=== PATIENT | male | born 1940 | race Caucasian/White ===

== ENCOUNTER 2018-06-02 21:39 | Emergency (ER) | payer MEDICARE, BC ==
--- NOTE | 2018-06-02 22:37 | EDM.PDOC ---
ED HPI GENERAL MEDICAL PROBLEM - General Chief Complaint: General Stated Complaint: HIGH POTASSIUM LEVEL Time Seen by Provider: 06/02/18 22:35 Source of Information: Reports: Patient History Limitations: Reports: No Limitations - History of Present Illness INITIAL COMMENTS - FREE TEXT/NARRATIVE: 78 yo male was seen in the [facility] earlier today and had a blood draw the results of which are just available this evening. He was told his K was 6.1 and that he needed to go back to the clinic early tomorrow morning to reassess this. He decided to come to the ER now instead. He has no physical sx's of this currently. His Cr was 1.5 last June. He his on a diuretic now and potassium supplementation. Also complains about a sore R 2nd toe that he bumped a couple days ago that is keeping him awake at night. Onset: Today Onset Date: 06/02/18 Duration: Hour(s):, Constant Quality: Reports: Other (no pain) Severity: Mild Improves with: Reports: None Worsens with: Reports: None Context: Reports: Other (some renal compromise, is on K supplementation) Associated Symptoms: Reports: No Other Symptoms Treatments MAINTENANCE CUSTODIAN: Reports: Other (see below) Other Treatments MAINTENANCE CUSTODIAN: none - Related Data Allergies Allergy/AdvReac Type Severity Reaction Status Date / Time No Known Allergies Allergy Verified 06/02/18 22:54 Home Meds: Home Meds Aspirin/Calcium Carbonate/Mag [Aspirin Buffered 325 mg Tab] 325 mg PO DAILY [History] Finasteride [Proscar] 5 mg PO DAILY 12/16/13 [History] Lisinopril [Prinivil] 40 mg PO DAILY 12/16/13 [History] Simvastatin [Zocor] 20 mg PO DAILY 12/16/13 [History] hydroCHLOROthiazide [Hydrochlorothiazide] 25 mg PO DAILY 12/16/13 [History] Spironolactone 25 mg PO DAILY 10/15/14 [History] Sennosides [Senna] 8.6 mg PO BID #100 tablet 11/24/14 [Rx] Past Medical History HEENT History: Reports: Cataract Cardiovascular History: Reports: High Cholesterol, Hypertension, Pacemaker Genitourinary History: Reports: BPH, Prostate Disorder Oncologic (Cancer) History: Reports: Leukemia - Infectious Disease History Infectious Disease History: Reports: Chicken Pox - Past Surgical History HEENT Surgical History: Reports: Cataract Surgery Cardiovascular Surgical History: Reports: Coronary Artery Bypass, Percutaneous Transluminal Angioplasty Respiratory Surgical History: Reports: Lung Resection, Other (See Below) Male Surgical History: Reports: TURP-Transurethral Resection of Prostate Musculoskeletal Surgical History: Reports: Hip Replacement, Knee Replacement Social & Family History - Family History Family Medical History: Noncontributory ED ROS GENERAL - Review of Systems Review Of Systems: See Below Constitutional: Reports: No Symptoms HEENT: Reports: No Symptoms Respiratory: Reports: No Symptoms Cardiovascular: Reports: No Symptoms GI/Abdominal: Reports: No Symptoms : Reports: No Symptoms Musculoskeletal: Reports: No Symptoms Skin: Reports: No Symptoms Neurological: Reports: No Symptoms Psychiatric: Reports: No Symptoms ED EXAM, GENERAL - Physical Exam Exam: See Below Exam Limited By: No Limitations General Appearance: Alert, WD/WN, No Apparent Distress, Thin Eye Exam: Bilateral Eye: Normal Inspection Ears: Normal External Exam, Normal Canal, Hearing Grossly Normal, Normal TMs Ear Exam: Bilateral Ear: Auricle Normal, Canal Normal, TM normal Nose: Normal Inspection, Normal Mucosa, No Blood Throat/Mouth: Normal Inspection, Normal Oropharynx, Normal Voice, No Airway Compromise. No: Normal Teeth Head: Atraumatic, Normocephalic Neck: Normal Inspection, Supple Respiratory/Chest: No Respiratory Distress, Lungs Clear, Normal Breath Sounds, No Accessory Muscle Use Cardiovascular: Regular Rate, Rhythm, No Edema GI/Abdominal: Normal Bowel Sounds, Soft, Non-Tender, No Distention Back Exam: Normal Inspection. No: CVA Tenderness (R), CVA Tenderness (L) Extremities: Normal Inspection, Normal Range of Motion, Non-Tender, No Pedal Edema Neurological: Alert, Oriented, CN II-XII Intact, Normal Cognition, No Motor/ Sensory Deficits Psychiatric: Normal Affect, Normal Mood Skin Exam: Warm, Dry, Intact, Normal Color, No Rash EKG INTERPRETATION EKG Date: 06/02/18 Time: 23:02 Rhythm: Other (paced rhythm) Rate (Beats/Min): 73 [place]: Normal P-Wave: Present QRS: Wide ST-T: Other (unchanged from prior EKG) QT: Normal [place]/PQ Interval: prolonged [place] interval Comparison: No Change Course - Vital Signs Last Recorded V/S: Last Vital Signs Temp 35.4 C 08/14/18 22:23 Pulse 76 06/02/18 22:23 Resp 16 06/02/18 22:23 BP 99/43 L 06/02/18 22:23 Pulse Ox 99 06/02/18 22:23 - Orders/Labs/Meds Orders: Active Orders 24 hr Category Date Time Status EKG Documentation Completion [RC] ASDIRECTED Care 06/02/18 22:57 Ordered EKG 12 Lead [EK] Routine Ther 06/02/18 22:57 Ordered Labs: Laboratory Tests 06/02/18 Range/Units 22:40 Potassium 5.8 H (3.6-5.2) mmol/L Meds: Medications Discontinued Medications Generic Name Dose Route Start Last Admin Trade Name Freq PRN Reason Stop Dose Admin Sodium Polystyrene Sulfonate 30 gm 06/02/18 22:57 Kayexalate PO 06/02/18 22:58 ONETIME ONE Departure - Departure Time of Disposition: 23:15 Disposition: Home, Self-Care 01 Condition: Fair Clinical Impression: Hyperkalemia Toe contusion Qualifiers: Encounter type: initial encounter Toe: lesser toe Damage to nail status: without damage Laterality: right Qualified Code(s): S90.121A - Contusion of right lesser toe(s) without damage to nail, initial encounter - Discharge Information *PRESCRIPTION DRUG MONITORING PROGRAM REVIEWED*: No *COPY OF PRESCRIPTION DRUG MONITORING REPORT IN PATIENT LUIS E: No Instructions: Hyperkalemia, [id number] Referrals: Leo Archer MD [Primary Care Provider] - Forms: ED Department Discharge Additional Instructions: Hold your potassium supplementation. Recheck in the clinic again for another potassium check before the weekend. Use acetaminophen OR [place] for pain relief as needed. Watch your toe closely for signs of infection. - My Orders Last 24 Hours: My Active Orders 06/02/18 22:57 EKG Documentation Completion [RC] ASDIRECTED EKG 12 Lead [EK] Routine - Assessment/Plan Last 24 Hours: My Active Orders 06/02/18 22:57 EKG Documentation Completion [RC] ASDIRECTED EKG 12 Lead [EK] Routine
[2018-06-02] MEDS ORDERED: Sodium Polystyrene Sulfonate 15 GM/60 ML Susp 60 ML Bot PO ONE (22:57)
[2018-06-02 23:29] VITALS: BP 108/54
== END 2018-06-02 23:28 | disposition home or self-care (01) ==
LOC: JP.ED 21:39
DX: E87.5 Hyperkalemia (principal); S90.121A Contusion of right lesser toe(s) without damage to nail, initial encounter; I10 Essential (primary) hypertension; Z79.82 Long term (current) use of aspirin; Z79.899 Other long term (current) drug therapy; X58.XXXA Exposure to other specified factors, initial encounter; C34.12 Malignant neoplasm of upper lobe, left bronchus or lung; Z90.2 Acquired absence of lung [part of]; R91.8 Other nonspecific abnormal finding of lung field
CPT/HCPCS: 36415; 71250; 84132; 93005; 99283; 99285; A9270

== ENCOUNTER 2018-06-06 13:42 | Observation (INO) | payer BC, MEDICARE ==
[2018-06-06] MEDS ORDERED: Sodium Polystyrene Sulfonate 15 GM/60 ML Susp 60 ML Bot PO ONE (14:18)
[2018-06-06] MEDS ORDERED: Sodium Chloride 0.9% 1,000 ML IV ONE (14:20)
--- NOTE | 2018-06-06 14:21 | EDM.PDOC ---
ED HPI GENERAL MEDICAL PROBLEM - General Chief Complaint: General Stated Complaint: HIGH POTASSIUM LEVELS Time Seen by Provider: 06/06/18 14:31 Source of Information: Reports: Patient, Old Records, Provider, RN History Limitations: Reports: No Limitations - History of Present Illness INITIAL COMMENTS - FREE TEXT/NARRATIVE: 78 yo male was sent to the ER today for hyperkalemia and elevated creatinine. Recently stopped his potassium supplementation for this and his potassium level estela. Is urinating normal amts. No recent vomiting or diarrhea. Appetite normal. Lives with his . Is on spironolactone 25 mg qd and lisinopril 40 mg qd. Onset: Gradual Onset Date: 06/02/18 (first noted, likely onset before this. ) Duration: Day(s): (Or ? weeks.) Location: Reports: Generalized Quality: Reports: Other (no pain) Severity: Moderate Improves with: Reports: None Worsens with: Reports: Other (? time) Context: Reports: Other (Dx with hyperkalemia early in week, now also renal failure) Associated Symptoms: Reports: No Other Symptoms Treatments SPUDDER: Reports: Other (see below) (one dose of Kayexalate early in the week, potassium withheld) - Related Data Allergies Allergy/AdvReac Type Severity Reaction Status Date / Time No Known Allergies Allergy Verified 06/02/18 22:54 Home Meds: Home Meds Aspirin/Calcium Carbonate/Mag [Aspirin Buffered 325 mg Tab] 325 mg PO DAILY [History] Finasteride [Proscar] 5 mg PO DAILY 12/16/13 [History] Lisinopril [Prinivil] 40 mg PO DAILY 12/16/13 [History] Simvastatin [Zocor] 20 mg PO DAILY 12/16/13 [History] hydroCHLOROthiazide [Hydrochlorothiazide] 25 mg PO DAILY 12/16/13 [History] Spironolactone 25 mg PO DAILY 10/15/14 [History] Sennosides [Senna] 8.6 mg PO BID #100 tablet 11/24/14 [Rx] Past Medical History HEENT History: Reports: Cataract Cardiovascular History: Reports: High Cholesterol, Hypertension, Pacemaker Genitourinary History: Reports: BPH, Prostate Disorder Oncologic (Cancer) History: Reports: Leukemia - Infectious Disease History Infectious Disease History: Reports: Chicken Pox, Measles, Mumps - Past Surgical History HEENT Surgical History: Reports: Cataract Surgery Cardiovascular Surgical History: Reports: Coronary Artery Bypass, Percutaneous Transluminal Angioplasty Respiratory Surgical History: Reports: Lung Resection, Other (See Below) Male Surgical History: Reports: TURP-Transurethral Resection of Prostate Musculoskeletal Surgical History: Reports: Hip Replacement, Knee Replacement Social & Family History - Family History Family Medical History: Noncontributory - Tobacco Use Smoking Status *Q: Never Smoker - Caffeine Use Caffeine Use: Reports: Coffee - Recreational Drug Use Recreational Drug Use: No ED ROS GENERAL - Review of Systems Review Of Systems: See Below Constitutional: Reports: No Symptoms HEENT: Reports: No Symptoms Respiratory: Reports: No Symptoms Cardiovascular: Reports: No Symptoms GI/Abdominal: Reports: No Symptoms : Reports: No Symptoms (making normal urine volumes.) Musculoskeletal: Reports: No Symptoms Skin: Reports: No Symptoms Neurological: Reports: No Symptoms Psychiatric: Reports: No Symptoms ED EXAM, GENERAL - Physical Exam Exam: See Below Exam Limited By: No Limitations General Appearance: Alert, WD/WN, No Apparent Distress, Thin Eye Exam: Bilateral Eye: Normal Inspection Ears: Normal External Exam, Normal Canal, Hearing Grossly Normal Nose: Normal Inspection, Normal Mucosa, No Blood Throat/Mouth: Normal Inspection, Normal Lips, Normal Oropharynx, Normal Voice, No Airway Compromise Head: Atraumatic, Normocephalic Neck: Normal Inspection, Supple Respiratory/Chest: No Respiratory Distress, Lungs Clear, Normal Breath Sounds, No Accessory Muscle Use Cardiovascular: Regular Rate, Rhythm GI/Abdominal: Normal Bowel Sounds, Soft, Non-Tender, No Distention Back Exam: Normal Inspection. No: CVA Tenderness (R), CVA Tenderness (L) Extremities: Normal Inspection, Normal Range of Motion, Non-Tender, No Pedal Edema Neurological: Alert, Oriented, CN II-XII Intact, Normal Cognition, No Motor/ Sensory Deficits Psychiatric: Normal Affect, Normal Mood Skin Exam: Warm, Dry, Intact, Normal Color, No Rash EKG INTERPRETATION EKG Date: 06/06/18 Time: 14:25 Rhythm: NSR Rate (Beats/Min): 69 [place]: Normal P-Wave: Present QRS: Wide ST-T: Normal QT: Prolonged [place]/PQ Interval: prolonged [place] interval. Comparison: No Change EKG Interpretation Comments: T waves peaked, not more than on 06/02/2018 Course - Vital Signs Text/Narrative:: Dr. Mora called @ [id number] Last Recorded V/S: Last Vital Signs Temp 34.6 C L 06/06/18 14:10 Pulse 76 06/06/18 14:10 Resp 16 06/06/18 14:10 BP 120/58 L 06/06/18 15:07 Pulse Ox 97 06/06/18 14:10 - Orders/Labs/Meds Orders: Active Orders 24 hr Category Date Time Status Cardiac Monitoring [RC] .As Directed Care 06/06/18 14:21 Active EKG Documentation Completion [RC] ASDIRECTED Care 06/06/18 14:21 Active POTASSIUM,URINE RANDOM [URCHEM] Stat Lab 06/06/18 14:48 Ordered Calcium Gluconate 1 gm Med 06/06/18 15:15 Active Sodium Chloride 0.9% [Normal Saline] 100 ml IV ONETIME Sodium Chloride 0.9% [Normal Saline] 1,000 ml Med 06/06/18 14:20 Active IV .BOLUS EKG 12 Lead [EK] Routine Ther 06/06/18 14:21 Ordered Medication Orders Sodium Chloride (Normal Saline) 1,000 mls @ 1,000 mls/hr IV .BOLUS ONE Stop: 06/06/18 15:19 Last Admin: 06/06/18 15:07 Dose: 1,000 mls/hr Calcium Gluconate 1 gm/ Sodium (Chloride) 110 mls @ 100 mls/hr IV ONETIME ONE Stop: 06/06/18 16:20 Meds: Medications Generic Name Dose Route Start Last Admin Trade Name Freq PRN Reason Stop Dose Admin Sodium Chloride 1,000 mls @ 1,000 mls/hr 06/06/18 14:20 06/06/18 15:07 Normal Saline IV 06/06/18 15:19 1,000 mls/hr .BOLUS ONE Administration Calcium Gluconate 1 gm/ Sodium 110 mls @ 100 mls/hr 06/06/18 15:15 Chloride IV 06/06/18 16:20 ONETIME ONE Discontinued Medications Generic Name Dose Route Start Last Admin Trade Name Freq PRN Reason Stop Dose Admin Furosemide 40 mg 06/06/18 14:51 06/06/18 15:07 Lasix IVPUSH 06/06/18 14:52 40 mg ONETIME ONE Administration Sodium Polystyrene Sulfonate 45 gm 06/06/18 14:18 06/06/18 14:48 Kayexalate PO 06/06/18 14:19 45 gm NOW ONE Administration Departure - Departure Time of Disposition: 15:35 Disposition: Refer to Observation Condition: Fair Clinical Impression: Hyperkalemia, Elevated serum creatinine, Elevated BUN - Discharge Information *PRESCRIPTION DRUG MONITORING PROGRAM REVIEWED*: Not Applicable *COPY OF PRESCRIPTION DRUG MONITORING REPORT IN PATIENT LUIS E: Not Applicable Referrals: Leo Archer MD [Primary Care Provider] - Forms: ED Department Discharge - My Orders Last 24 Hours: My Active Orders 06/06/18 14:20 Sodium Chloride 0.9% [Normal Saline] 1,000 ml IV .BOLUS 06/06/18 14:21 Cardiac Monitoring [RC] .As Directed EKG Documentation Completion [RC] ASDIRECTED EKG 12 Lead [EK] Routine 06/06/18 14:48 POTASSIUM,URINE RANDOM [URCHEM] Stat 06/06/18 15:15 Calcium Gluconate 1 gm Sodium Chloride 0.9% [Normal Saline] 100 ml IV ONETIME - Assessment/Plan Last 24 Hours: My Active Orders 06/06/18 14:20 Sodium Chloride 0.9% [Normal Saline] 1,000 ml IV .BOLUS 06/06/18 14:21 Cardiac Monitoring [RC] .As Directed EKG Documentation Completion [RC] ASDIRECTED EKG 12 Lead [EK] Routine 06/06/18 14:48 POTASSIUM,URINE RANDOM [URCHEM] Stat 06/06/18 15:15 Calcium Gluconate 1 gm Sodium Chloride 0.9% [Normal Saline] 100 ml IV ONETIME
[2018-06-06] MEDS ORDERED: Calcium Gluconate 1 GM in Sodium Chloride 0.9% 100 ML IV ONE ×2 (14:45→15:15)
[2018-06-06] MEDS ORDERED: Furosemide 40 MG/4 ML VIAL IVPUSH ONE (14:51)
--- NOTE | 2018-06-06 16:05 | PCM.HP ---
H&P History of Present Illness - General Date of Service: 06/06/18 Admit Problem/Dx: Admission Diagnosis/Problem Admission Diagnosis/Problem Hyperkalemia Source of Information: Patient, Family, Provider History Limitations: Reports: No Limitations - History of Present Illness Initial Comments - Free Text/Narative: Jean Paul presented to the ER at the recommendation of the clinic where he presented for a potassium recheck. Earlier this week he had his six-month labs checked at the oncology clinic and a potassium of 6.1 and a creatinine of about 2.5 for both noted. He was sent to the emergency room for treatment. He was treated and released from the emergency room that evening. He came to the clinic today for a planned recheck and his potassium was up to 6.3 and his creatinine was up to 3.4. He was sent to the emergency room for treatment and evaluation. He reports that he feels fine and does not endorse headache, shortness of breath, chest pain, abdominal pain or nausea. Nothing has been out of the ordinary other than possibly some mild fatigue. He has not had any fevers or sweats. Appetite has been normal. In the emergency room an EKG was performed which showed some mildly peaked T waves. He received calcium gluconate, Kayexalate, IV fluids and furosemide. He will be admitted for observation. - Related Data Allergies/Adverse Reactions: Allergies Allergy/AdvReac Type Severity Reaction Status Date / Time No Known Allergies Allergy Verified 06/02/18 22:54 Home Medications: Home Meds Aspirin/Calcium Carbonate/Mag [Aspirin Buffered 325 mg Tab] 325 mg PO DAILY [History] Finasteride [Proscar] 5 mg PO DAILY 12/16/13 [History] Lisinopril [Prinivil] 40 mg PO DAILY 12/16/13 [History] Simvastatin [Zocor] 20 mg PO DAILY 12/16/13 [History] hydroCHLOROthiazide [Hydrochlorothiazide] 25 mg PO DAILY 12/16/13 [History] Spironolactone 25 mg PO DAILY 10/15/14 [History] Sennosides [Senna] 8.6 mg PO BID #100 tablet 11/24/14 [Rx] Past Medical History HEENT History: Reports: Cataract Cardiovascular History: Reports: High Cholesterol, Hypertension, Pacemaker Genitourinary History: Reports: BPH, Prostate Disorder Oncologic (Cancer) History: Reports: Leukemia - Infectious Disease History Infectious Disease History: Reports: Chicken Pox, Measles, Mumps - Past Surgical History HEENT Surgical History: Reports: Cataract Surgery Cardiovascular Surgical History: Reports: Coronary Artery Bypass, Percutaneous Transluminal Angioplasty Respiratory Surgical History: Reports: Lung Resection, Other (See Below) Male Surgical History: Reports: TURP-Transurethral Resection of Prostate Musculoskeletal Surgical History: Reports: Hip Replacement, Knee Replacement Social & Family History - Family History Family Medical History: Noncontributory - Tobacco Use Smoking Status *Q: Never Smoker - Caffeine Use Caffeine Use: Reports: Coffee - Alcohol Use Alcohol Use History: No - Recreational Drug Use Recreational Drug Use: No H&P Review of Systems - Review of Systems: Review Of Systems: See Below Free Text/Narrative: A complete 12 point review of systems was obtained. Pertinent positives and negatives are noted in the history of present illness. All other systems were reviewed and were negative except as noted. Exam - Exam Exam: See Below - Vital Signs Vital Signs: Last Vital Signs Temp 34.6 C L 06/06/18 14:10 Pulse 77 06/06/18 15:37 Resp 16 06/06/18 14:10 BP 122/62 06/06/18 15:37 Pulse Ox 97 06/06/18 14:10 Weight: 55.2 kg - Exam Quality Assessment: No: Supplemental Oxygen General: Alert, Oriented, Cooperative. No: Mild Distress HEENT: Conjunctiva Clear, Mucosa Moist & [place]. No: Scleral Icterus Neck: Supple, Trachea Midline. No: Lymphadenopathy Lungs: Clear to Auscultation, Normal Respiratory Effort Cardiovascular: Regular Rate, Regular Rhythm. No: Systolic Murmur GI/Abdominal Exam: Normal Bowel Sounds, Soft, Non-Tender, No Distention Back Exam: Normal Inspection, Full Range of Motion Extremities: No Pedal Edema. No: Increased Warmth Skin: Warm, Dry Neuro Extensive - Mental Status: Alert, Oriented x3, Nl Response to Commands Neuro Extensive - Motor, Sensory, Reflexes: CN II-XII Intact. No: Dysarthria, Abnormal Motor, Tremor Psychiatric: Alert, Normal Affect - Patient Data Lab Results Last 24 hrs: Laboratory Results - last 24 hr 06/06/18 Range/Units 15:23 Ur Random Potassium 44.7 (12-62) mmol/L EKG INTERPRETATION EKG Date: 06/06/18 Rhythm: NSR Rate (Beats/Min): 69 [place]: LAD-Left Ono Deviation (LAFB) P-Wave: Present QRS: Wide ST-T: Normal Comparison: No Change EKG Interpretation Comments: Inverted T wave in II, III and aVF image personally reviewed *Q Meaningful Use (ADM) - VTE Risk Assess *Q Each Risk Factor Represents 1 Point: None Total Score 1 Point Risk Factors: 0 Each Risk Factor Represents 2 Points: Malignancy (present or previous) Total Score 2 Point Risk Factors: 2 Each Risk Factor Represents 3 Points: Age 75 Years or Greater Total Score 3 Point Risk Factors: 3 Each Risk Factor Represents 5 Points: None Total Score 5 Point Risk Factors: 0 Venous Thromboembolism Risk Factor Score *Q: 5 - Problem List (1) Hyperkalemia SNOMED Code(s): 63233546 ICD Code: E87.5 - HYPERKALEMIA Status: Acute Current Visit: Yes (2) Acute kidney injury superimposed on chronic kidney disease SNOMED Code(s): 73738548 ICD Code: N17.9 - ACUTE KIDNEY FAILURE, UNSPECIFIED; N18.9 - CHRONIC KIDNEY DISEASE, UNSPECIFIED Status: Acute Current Visit: Yes (3) Chronic lymphocytic leukemia SNOMED Code(s): 00413325 ICD Code: C91.10 - CHRONIC LYMPHOCYTIC LEUK OF B-CELL TYPE NOT ACHIEVE REMIS Status: Chronic Current Visit: No Problem List Initiated/Reviewed/Updated: Yes Orders Last 24hrs: Active Orders 24 hr Category Date Time Status Patient Status Manage Transfer [TRANSFER] Routine ADT 06/06/18 15:55 Ordered Cardiac Monitoring [RC] .As Directed Care 06/06/18 14:21 Active EKG Documentation Completion [RC] ASDIRECTED Care 06/06/18 14:21 Active POTASSIUM,URINE RANDOM [URCHEM] Stat Lab 06/06/18 15:23 Ordered Calcium Gluconate 1 gm Med 06/06/18 15:15 Active Sodium Chloride 0.9% [Normal Saline] 100 ml IV ONETIME Resuscitation Status Routine Resus Stat 06/06/18 15:56 Ordered EKG 12 Lead [EK] Routine Ther 06/06/18 14:21 Ordered Medication Orders Calcium Gluconate 1 gm/ Sodium (Chloride) 110 mls @ 100 mls/hr IV ONETIME ONE Stop: 06/06/18 16:20 Last Admin: 06/06/18 15:16 Dose: 100 mls/hr Assessment/Plan Comment:: ASSESSMENT AND PLAN - Acute hyperkalemia - complicated by renal failure as discussed below. I suspect this is related to medications as he is on both an SUHA inhibitor and spironolactone. He is asymptomatic at this time. Mildly peaked T waves noted on EKG and he has received calcium gluconate. He has also received Kayexalate, furosemide and IV fluids in the emergency room. -Repeat level this evening -Continue IV fluids -Repeat level in the morning Acute on chronic kidney injury - baseline kidney function is stage III and this was present 6 months ago. Creatinine is now up to 3.4. I suspect this is related to his antihypertensive medications. I'm planning to hold all 3 of his antihypertensive medications and provide gentle fluids. I would expect that this should help improve the creatinine as well as the potassium as discussed above. If he has difficulties with hypertension we may need to consider an antihypertensive such as a calcium channel yves or beta yves that will not affect kidney function. -Hold lisinopril, hydrochlorothiazide and spironolactone -Fluids as above -Repeat levels in the morning CLL - No B symptoms at this time. White blood cell count has been stable. Oncology is still in the watchful waiting phase. -Outpatient follow-up Maintenance issues - - DVT prophylaxis - mechanical - GI prophylaxis - not indicated - Nutrition - regular diet - Marcelino catheter - not indicated CODE STATUS - full code Admission justification - patient will be referred observation status for repeat laboratory testing and hydration Disposition - I would anticipate discharge to home tomorrow if levels improve Primary care physician - Dr. Gianni Mora M.D.
[2018-06-06] MEDS ORDERED: Polyethylene Glycol 3350 Powder 17 GM Packet PO PRN (16:41)
[2018-06-06] MEDS ORDERED: Acetaminophen 325 MG Tab PO PRN (16:41)
[2018-06-06] MEDS ORDERED: Ondansetron 4 MG Tab.DIS PO PRN (16:41)
[2018-06-06] MEDS: Sodium Chloride 0.9% 1,000 ML IV SCH (17:12)
[2018-06-07] MEDS: Sodium Chloride 0.9% 1,000 ML IV SCH (00:39)
[2018-06-07 07:23] VITALS: BP 105/48
[2018-06-07] MEDS ORDERED: Finasteride 5 MG Tab PO SCH (09:00)
[2018-06-07] MEDS ORDERED: Non-Formulary Medication 1 Each (Finasteride [Proscar] 5 MG) PO SCH (09:00)
[2018-06-07] MEDS ORDERED: Non-Formulary Medication 1 Each (Simvastatin [Zocor] 20 MG) PO SCH (09:00)
--- NOTE | 2018-06-07 09:58 | PCM.DCSUM1 ---
Discharge Summary - Hospital Course Brief History: 78-year-old male with previous lung cancer, current CLL in the watchful waiting stage and recent difficulties with hyperkalemia and acute on chronic kidney injury who presented from the clinic with worsening hyperkalemia and kidney function. Diagnosis: Stroke: No - Discharge Data Discharge Date: 06/07/18 Discharge Disposition: Home, Self-Care 01 Condition: Good - Discharge Diagnosis/Problem(s) (1) Hyperkalemia SNOMED Code(s): 44138322 ICD Code: E87.5 - HYPERKALEMIA Status: Acute (2) Acute kidney injury superimposed on chronic kidney disease SNOMED Code(s): 66754727 ICD Code: N17.9 - ACUTE KIDNEY FAILURE, UNSPECIFIED; N18.9 - CHRONIC KIDNEY DISEASE, UNSPECIFIED Status: Acute (3) Chronic lymphocytic leukemia SNOMED Code(s): 40866673 ICD Code: C91.10 - CHRONIC LYMPHOCYTIC LEUK OF B-CELL TYPE NOT ACHIEVE REMIS Status: Chronic - Patient Summary/Data Hospital Course: Kvng was sent from the clinic after his potassium level was noted to be 6.1 and his creatinine had risen to 3.4. In the emergency room he received Kayexalate, IV fluids, furosemide as well as calcium gluconate. He was admitted to the hospital for follow-up laboratory studies as well as cardiac monitoring. Repeat potassium testing several hours after admission revealed that the level had normalized. Repeat testing again in the morning revealed a potassium level that had remained normal. Kidney function had improved significantly with his creatinine down to 2.4. There were no abnormalities with cardiac monitoring overnight. He has continued to feel well. He is interested in outpatient management at this time. I think he is safe for outpatient management given the significant improvement in both his potassium and the kidney function. He has follow-up in 2 days time and has repeat blood testing planned prior to his follow-up appointment. We have elected to discontinue lisinopril, hydrochlorothiazide as well as his spironolactone. His blood pressures have been normal or on the low side of normal throughout the hospital stay. He will be checking his blood pressures 2-3 times daily and with any symptoms. - Patient Instructions Diet: Regular Diet as Tolerated Activity: As Tolerated Driving: May Drive Today Showering/Bathing: May Shower Notify Provider of: Fever, Increased Pain, Nausea and/or Vomiting Other/Special Instructions: 1. You were in the hospital for management of hyperkalemia and acute kidney injury caused by medication side effects. Your kidney function and potassium have both improved with treatment provided in the emergency room and hospital overnight. I recommend that you stop taking your lisinopril, your hydrochlorothiazide as well as your spironolactone. Please check your blood pressure 2-3 times per day until your follow-up on Friday. Please contact your provider if you have systolic blood pressures greater than 180. 2. Seek medical attention if you develop fever greater than 101, you have severe dizziness or lightheadedness or if you develop chest pain. - Discharge Plan *PRESCRIPTION DRUG MONITORING PROGRAM REVIEWED*: Not Applicable *COPY OF PRESCRIPTION DRUG MONITORING REPORT IN PATIENT LUIS E: Not Applicable Home Medications: Home Meds Aspirin/Calcium Carbonate/Mag [Aspirin Buffered 325 mg Tab] 325 mg PO DAILY [History] Finasteride [Proscar] 5 mg PO DAILY 12/16/13 [History] Simvastatin [Zocor] 20 mg PO DAILY 12/16/13 [History] Sennosides [Senna] 8.6 mg PO BID #100 tablet 11/24/14 [Rx] Patient Handouts: Hyperkalemia Referrals: Leo Archer MD [Primary Care Provider] - - Discharge Summary/Plan Comment DC Time >30 min.: No - Patient Data Vitals - Most Recent: Last Vital Signs Temp 36.0 C 06/07/18 07:16 Pulse 69 06/07/18 07:16 Resp 16 06/07/18 07:16 BP 105/48 L 06/07/18 07:16 Pulse Ox 98 06/07/18 07:16 Weight - Most Recent: 55.2 kg I&O - Last 24 hours: Intake & Output 06/06/18 06/07/18 06/07/18 22:59 06:59 14:59 Intake Total 1240 952 240 Output Total 575 Balance 665 952 240 Lab Results - Last 24 hrs: Laboratory Results - last 24 hr 06/06/18 06/06/18 06/07/18 Range/Units 15:23 20:55 04:44 WBC 49.7 H* (4.5-11.0) K/uL RBC 3.05 L (4.30-5.90) M/uL Hgb 8.6 L (12.0-15.0) g/dL Hct 27.8 L (40.0-54.0) % MCV 91 (80-98) fL MCH 28 (27-31) pg MCHC 31 L (32-36) % Plt Count 249 (150-400) K/uL Neut % (Auto) (36-66) % Lymph % (Auto) (24-44) % [place] % (Auto) (2-6) % Eos % (Auto) (2-4) % Baso % (Auto) (0-1) % Sodium (140-148) mmol/L Potassium 5.2 (3.6-5.2) mmol/L Chloride (100-108) mmol/L Carbon Dioxide (21-32) mmol/L Anion Gap (5.0-14.0) mmol/L BUN (7-18) mg/dL Creatinine (0.8-1.3) mg/dL Est Cr Clr Drug Dosing mL/min Estimated GFR (MDRD) (>60) Glucose (74-106) mg/dL Calcium (8.5-10.1) mg/dL Ur Random Potassium 44.7 (12-62) mmol/L 06/07/18 06/07/18 Range/Units 04:44 06:25 WBC 49.2 H* (4.5-11.0) K/uL RBC 3.02 L (4.30-5.90) M/uL Hgb 8.6 L (12.0-15.0) g/dL Hct 27.5 L (40.0-54.0) % MCV 91 (80-98) fL MCH 29 (27-31) pg MCHC 31 L (32-36) % Plt Count 260 (150-400) K/uL Neut % (Auto) 9 L (36-66) % Lymph % (Auto) 87 H (24-44) % [place] % (Auto) 3 (2-6) % Eos % (Auto) 0 L (2-4) % Baso % (Auto) 0 (0-1) % Sodium 141 (140-148) mmol/L Potassium 4.9 (3.6-5.2) mmol/L Chloride 109 H (100-108) mmol/L Carbon Dioxide 22 (21-32) mmol/L Anion Gap 14.9 H (5.0-14.0) mmol/L BUN 70 H (7-18) mg/dL Creatinine 2.5 H (0.8-1.3) mg/dL Est Cr Clr Drug Dosing 19.01 mL/min Estimated GFR (MDRD) 25 L (>60) Glucose 99 (74-106) mg/dL Calcium 8.2 L (8.5-10.1) mg/dL Ur Random Potassium (12-62) mmol/L Med Orders - Current: Current Medications Acetaminophen (Tylenol) 650 mg PO Q4H PRN PRN Reason: Pain (Mild 1-3)/fever Finasteride (Proscar) 5 mg PO DAILY [facility] Last Admin: 06/07/18 09:25 Dose: 5 mg Sodium Chloride (Normal Saline) 1,000 mls @ 100 mls/hr IV ASDIRECTED [facility] Last Admin: 06/07/18 00:39 Dose: 100 mls/hr Ondansetron HCl (Zofran Odt) 4 mg PO Q6H PRN PRN Reason: Nausea able to take PO Simvastatin 40mg ( (Ptom)) 0 each PO BEDTIME [facility] Polyethylene Glycol (Miralax) 17 gm PO DAILY PRN PRN Reason: Constipation Discontinued Medications Furosemide (Lasix) 40 mg IVPUSH ONETIME ONE Stop: 06/06/18 14:52 Last Admin: 06/06/18 15:07 Dose: 40 mg Sodium Chloride (Normal Saline) 1,000 mls @ 1,000 mls/hr IV .BOLUS ONE Stop: 06/06/18 15:19 Last Admin: 06/06/18 15:07 Dose: 1,000 mls/hr Calcium Gluconate 1 gm/ Sodium (Chloride) 110 mls @ 100 mls/hr IV ONETIME ONE Stop: 06/06/18 16:20 Last Admin: 06/06/18 15:16 Dose: 100 mls/hr Sodium Polystyrene Sulfonate (Kayexalate) 45 gm PO NOW ONE Stop: 06/06/18 14:19 Last Admin: 06/06/18 14:48 Dose: 45 gm - Exam Quality Assessment: Denies: Supplemental Oxygen General: Reports: Alert, Oriented, Cooperative, No Acute Distress Lungs: Reports: Normal Respiratory Effort GI/Abdominal Exam: Soft, No Distention Extremities: No Pedal Edema Psy/Mental Status: Reports: Alert, Normal Affect
[2018-06-07] MEDS ORDERED: SIMVASTATIN 40 MG PO SCH (21:00)
== END 2018-06-07 10:25 | disposition home or self-care (01) ==
LOC: JP.ED 13:42 → JP.MS 15:55
PROVIDERS: ADMIT Internal Medicine; ATTEND Internal Medicine
DX: E87.5 Hyperkalemia (principal); I12.9 Hypertensive chronic kidney disease with stage 1 through stage 4 chronic kidney disease, or unspecified chronic kidney disease; N18.9 Chronic kidney disease, unspecified; N17.9 Acute kidney failure, unspecified; C91.10 Chronic lymphocytic leukemia of B-cell type not having achieved remission; Z79.82 Long term (current) use of aspirin; Z79.899 Other long term (current) drug therapy
CPT/HCPCS: 36415; 80048; 84132; 84133; 85025; 85027; 93005; 96365; 96375; 99285; A9270; J0610; J1940; J7030; 96361; G0378

== ENCOUNTER 2020-06-05 07:41 | Inpatient (IN) | payer BC, MEDICARE ==
[~2020-06-05 07:41] MED LIST: Albuterol 0.083% 2.5 MG/3 ML Neb Soln NEB ONE; Bupivacaine 0.5%/EPINEPHrine 1:200,000 50 ML MDV ONE; Lidocaine 2% Viscous Solution 15 ML Cup ONE; Lidocaine 4% Top Soln 50 ML Bottle ONE
[2020-06-05] MEDS ORDERED: Metoprolol Succinate 25 MG Tab.ER PO ONE (08:30)
[2020-06-05] MEDS ORDERED: ePHEDrine 50 MG/ML SDV ONE ×2 (08:33→12:53)
[2020-06-05] MEDS ORDERED: Sodium Chloride 0.9% 0 ML ONE (08:33)
[2020-06-05] MEDS ORDERED: Neostigmine Methylsulfate 1 MG/ML 5 ML Syringe ONE (08:35)
[2020-06-05] MEDS ORDERED: Succinylcholine 200 MG/10 ML MDV ONE (08:35)
[2020-06-05] MEDS ORDERED: Rocuronium 50 MG/5 ML Vial ONE (08:35)
[2020-06-05] MEDS ORDERED: fentaNYL 250 MCG/5 ML SDV ONE (08:35)
[2020-06-05] MEDS ORDERED: Glycopyrrolate 0.2 MG/ML 5 ML MDV ONE (08:35)
[2020-06-05] MEDS ORDERED: Dexamethasone 4 MG/ML SDV ONE (08:35)
[2020-06-05] MEDS ORDERED: Ondansetron 4 MG/2 ML SDV ONE (08:35)
[2020-06-05] MEDS ORDERED: Propofol 200 MG/20 ML SDV ONE (08:35)
[2020-06-05] MEDS ORDERED: Sodium Chloride 0.9% 10 ML ONE (08:40)
[2020-06-05] MEDS ORDERED: Heparin Sodium 5,000 Units/ML Vial ONE (08:47)
[2020-06-05] MEDS ORDERED: ceFAZolin 2 GM in Premix Bag 1 BAG IV ONE (09:00)
[2020-06-05] MEDS ORDERED: Acetaminophen 500 MG Tab PO ONE (09:00)
[2020-06-05] MEDS: Dextrose 5%-Lactated Ringers 1,000 ML IV SCH ×3 (09:13→19:42)
[2020-06-05] MEDS ORDERED: Naloxone 0.4 MG/ML SDV IVPUSH PRN (10:00)
[2020-06-05] MEDS ORDERED: Lidocaine 1% 2 ML ONE (11:36)
[2020-06-05] MEDS ORDERED: Sodium Chloride 0.9% 500 ML ONE ×2 (12:56)
[2020-06-05] MEDS ORDERED: Meropenem 500 MG SDV ONE (13:26)
--- NOTE | 2020-06-05 15:00 | CR ---
CHEST: Portable 06/05/2020 at 2:25 PM CLINICAL HISTORY:Thoracotomy COMPARISON:CT 05/31/2020 FINDINGS: Heart is enlarged. Pulmonary vascularity is normal. Patient has perhaps had previous sternotomy. There is recent right thoracotomy. 2 right chest tubes remain in place. There is no significant pneumothorax. Impression: Status post right thoracotomy 2 right chest tubes remain place No pneumothorax Cardiomegaly with previous sternotomy Permanent cardiac pacer.
--- NOTE | 2020-06-05 15:01 | CR ---
CHEST: Portable decubitus CLINICAL HISTORY:Rule out foreign body COMPARISON:None FINDINGS: Patient has undergone right thoracotomy. 2 right chest tubes are in place. No radiopaque foreign body is identified. The there has been previous sternotomy. Patient's permanent cardiac pacer. Impression: Recent right thoracotomy No radiopaque foreign body seen
[2020-06-05] MEDS ORDERED: Nitroglycerin 0.4 MG Tab.SL SL PRN (15:38)
[2020-06-05] MEDS ORDERED: Albuterol/Ipratropium 3.0-0.5 MG/3 ML Neb Soln INH PRN (16:00)
[2020-06-05] MEDS ORDERED: diphenhydrAMINE 50 MG/ML SDV IVPUSH PRN (16:00)
[2020-06-05] MEDS: Acetaminophen 500 MG Tab PO SCH ×2 (16:29→21:14)
[2020-06-05] MEDS: Pantoprazole 40 MG Vial IVPUSH SCH (16:29)
[2020-06-05] MEDS: fentaNYL 2,500 MCG in Sodium Chloride 0.9% 200 ML EPIDUR SCH (17:20)
[2020-06-05] MEDS: ceFAZolin 2 GM in Premix Bag 1 BAG IV SCH (18:07)
[2020-06-05] MEDS: Naloxone 0.4 MG/ML SDV IV PRN (19:41)
[2020-06-05] MEDS: Albuterol/Ipratropium 3.0-0.5 MG/3 ML Neb Soln INH SCH (20:44)
[2020-06-06] MEDS: ceFAZolin 2 GM in Premix Bag 1 BAG IV SCH ×3 (01:15→17:38)
[2020-06-06] MEDS: Dextrose 5%-Lactated Ringers 1,000 ML IV SCH ×2 (03:00→20:26)
[2020-06-06] MEDS: Acetaminophen 500 MG Tab PO SCH ×4 (04:04→23:30)
[2020-06-06] MEDS: Ondansetron 4 MG/2 ML SDV IVPUSH PRN (04:58)
[2020-06-06] MEDS: Albuterol/Ipratropium 3.0-0.5 MG/3 ML Neb Soln INH SCH ×3 (07:44→15:07)
--- NOTE | 2020-06-06 09:22 | CR ---
CHEST: Portable 06/06/2020 at 3:14 AM CLINICAL HISTORY:Right thoracotomy COMPARISON:06/05/2020 FINDINGS: Patient is status post right thoracotomy. 2 right chest tubes remain in place. There is a curvilinear density over the right upper hemithorax. Some of this may be skin fold. There does appear to be some lung markings beyond this. Small pneumothorax is not excluded. Heart is enlarged. Patient has had previous sternotomy. Permanent cardiac pacer. Left lung is clear Impression: Status post right thoracotomy 2 right chest tubes in place Curvilinear density over the upper chest may be skin fold artifact but small pneumothorax is not excluded
[2020-06-06] MEDS: Lisinopril 2.5 MG Tab PO SCH (09:41)
[2020-06-06] MEDS: Metoprolol Succinate 25 MG Tab.ER PO SCH (09:42)
[2020-06-06] MEDS: Docusate Sodium 100 MG Cap PO SCH ×2 (09:44→23:30)
[2020-06-06] MEDS: Pantoprazole 40 MG Vial IVPUSH SCH (15:42)
[2020-06-06] MEDS: fentaNYL 2,500 MCG in Sodium Chloride 0.9% 200 ML EPIDUR SCH (16:25)
[2020-06-06] MEDS: Naloxone 0.4 MG/ML SDV IV PRN (20:26)
[2020-06-07] MEDS: Albuterol/Ipratropium 3.0-0.5 MG/3 ML Neb Soln INH SCH ×5 (00:23→21:05)
[2020-06-07] MEDS: Ondansetron 4 MG/2 ML SDV IVPUSH PRN (00:46)
[2020-06-07] MEDS: ceFAZolin 2 GM in Premix Bag 1 BAG IV SCH (01:41)
[2020-06-07] MEDS ORDERED: Lactated Ringers 500 ML IV ONE ×2 (02:15→05:45)
[2020-06-07] MEDS: Haloperidol Lactate 5 MG/ML SDV IVPUSH PRN ×4 (02:24→21:09)
[2020-06-07] MEDS: Acetaminophen 500 MG Tab PO SCH ×4 (03:11→21:04)
[2020-06-07] MEDS ORDERED: Lactated Ringers 500 ML IV SCH (05:45)
[2020-06-07] MEDS: Dextrose 5%-Lactated Ringers 1,000 ML IV SCH ×2 (06:20→16:38)
[2020-06-07] MEDS ORDERED: Furosemide 20 MG/2 ML VIAL IVPUSH ONE (06:30)
[2020-06-07] MEDS ORDERED: fentaNYL/Normal Saline 600 MCG/30 ML PCA Vial IV PRN (08:00)
[2020-06-07] MEDS ORDERED: Naloxone 0.4 MG/ML SDV IV PRN (08:00)
--- NOTE | 2020-06-07 09:14 | CR ---
CHEST: Portable 06/07/2020 3:52 AM CLINICAL HISTORY:Chest tubes COMPARISON:06/06/2020 FINDINGS: There is a poor inspiratory level exaggerating lung markings. Patient is status post right thoracotomy. 2 right chest tubes remain in place. The no significant pneumothorax is seen on the current study. There is increasing airspace disease in both lower lobes. Some of this is due to poor inspiratory level. Heart is enlarged. Pulmonary vascularity is normal. Patient's permanent cardiac pacer. There is been previous sternotomy. Impression: Poor inspiratory level Status post right thoracotomy Chest tubes remain in place No evidence of pneumothorax Bilateral lower lobe infiltrates with a moderate increase on the left.
[2020-06-07] MEDS: Magnesium Sulfate/Water 2 GM in Premix Bag 1 BAG IV SCH ×3 (09:28→19:56)
[2020-06-07] MEDS: Metoprolol Succinate 25 MG Tab.ER PO SCH (10:06)
[2020-06-07] MEDS: Bisacodyl 5 MG Tab PO SCH ×2 (10:06→21:05)
[2020-06-07] MEDS: Docusate Sodium 100 MG Cap PO SCH ×2 (10:06→21:05)
[2020-06-07] MEDS: Lisinopril 2.5 MG Tab PO SCH (10:07)
[2020-06-07] MEDS: Pantoprazole 40 MG Vial IVPUSH SCH (15:48)
[2020-06-08] MEDS: hydrOXYzine HCL 100 MG/2 ML SDV IM PRN (01:01)
[2020-06-08] MEDS: Magnesium Sulfate/Water 2 GM in Premix Bag 1 BAG IV SCH ×4 (01:30→20:11)
[2020-06-08] MEDS: Dextrose 5%-Lactated Ringers 1,000 ML IV SCH (02:23)
[2020-06-08] MEDS: Acetaminophen 500 MG Tab PO SCH ×5 (03:04→21:34)
[2020-06-08] MEDS: Haloperidol Lactate 5 MG/ML SDV IVPUSH PRN (03:11)
[2020-06-08] MEDS ORDERED: Furosemide 20 MG/2 ML VIAL IVPUSH ONE ×2 (06:28→12:00)
[2020-06-08] MEDS: Albuterol/Ipratropium 3.0-0.5 MG/3 ML Neb Soln INH SCH ×4 (07:00→20:11)
[2020-06-08] MEDS ORDERED: Dextrose 5%-Lactated Ringers 1,000 ML IV SCH (07:30)
[2020-06-08] MEDS ORDERED: Ketorolac 30 MG/ML SDV IVPUSH ONE (08:00)
--- NOTE | 2020-06-08 09:08 | CR ---
CHEST: Portable 06/08/2020 at 4:45 AM CLINICAL HISTORY:Chest tubes COMPARISON:06/07/2020 FINDINGS: Patient is status post right thoracotomy. 2 right chest tubes remain in place. No significant pneumothorax is identified. There is minimal soft tissue emphysema persisting. Heart is enlarged. Pulmonary vascularity is normal. Impression: Status post right thoracotomy 2 right chest tubes remain in place No significant pneumothorax seen Cardiomegaly
[2020-06-08] MEDS: Potassium Phos in 0.9 % NaCl 15 MMOL in Premix Bag 1 BAG IV SCH ×6 (09:58→17:50)
[2020-06-08] MEDS: Metoprolol Succinate 25 MG Tab.ER PO SCH (11:00)
[2020-06-08] MEDS: Bisacodyl 5 MG Tab PO SCH ×2 (11:01→20:10)
[2020-06-08] MEDS: Docusate Sodium 100 MG Cap PO SCH ×2 (11:01→20:10)
[2020-06-08] MEDS: Lisinopril 2.5 MG Tab PO SCH (11:01)
--- NOTE | 2020-06-08 11:17 | PN ---
DATE OF SERVICE: 06/07/2020 The patient has been afebrile with stable vital signs. His confusion level increased quite a bit last night and he is receiving some Haldol. We will discontinue the epidural infusion at this point. low-dose fentanyl DIAL BRUSHER along with oral Tylenol. His creatinine bumped up a little bit at . His BNP went from 1300 to 2100, so we will give him some IV Lasix at this point. Otherwise, continue n.p.o. except for sips of clear liquids and switch over to the fentanyl DIAL BRUSHER. Chest x-ray shows a small pneumothorax, but we will leave him on more or less water seal at this point, which I think will facilitate at sealing up. Kali Whitlock MD /[id number]
--- NOTE | 2020-06-08 11:35 | PN ---
DATE OF SERVICE: 06/08/2020 The patient has been afebrile with stable vital signs. He is still somewhat confused, and it is somewhat of a challenge to keep him adequately controlled as far as pain and then also lucid enough to be up and moving. He appears to be probably retaining a little extra fluid. BNP is up quite a bit. We will give him 2 doses of Lasix this morning and back down on the IV rate. Otherwise, chest tube has been fluctuating, putting out about 400 mL. No air leak is seen. The lung appeared to be inflated at this point. I will hold on proceeding with a diet until we are able to get more of a lucid period persistently. Otherwise, will continue to maximize activity and work with pulmonary toilet. Kali Whitlock MD /[id number]
--- NOTE | 2020-06-08 11:44 | PN ---
DATE OF SERVICE: 06/06/2020 The patient has been afebrile with now stable vital signs. Overnight, he had some respiratory depression related to the epidural catheter that was draining somewhat higher than what was tolerated. This was reduced and both his respiratory pattern and his blood gases have improved. He had quite a bit of CO2 retention. Presently, he has been wide awake and getting up and moving satisfactorily. Pain control is good. Chest x-ray looks good as well. The chest tube output is becoming serous. No air leaks were noted. The hemoglobin is stable at 10.9, his white count is related to CLL. Chemistries showed no significant problems. Creatinine is stable at 1.3. We will back down on the IV rate somewhat today and begin some Ensure Clear. Otherwise, give him much in the way of oral intake. We will start some scheduled bowel stimulation and continue the epidural catheter for pain management. Kali Whitlock MD /[id number]
[2020-06-08] MEDS: Ibuprofen 600 MG Tab PO SCH ×2 (13:52→19:39)
[2020-06-08] MEDS: Pantoprazole 40 MG Vial IVPUSH SCH (15:53)
[2020-06-09] MEDS: Magnesium Sulfate/Water 2 GM in Premix Bag 1 BAG IV SCH (02:01)
[2020-06-09] MEDS: Ibuprofen 600 MG Tab PO SCH ×4 (02:09→20:27)
[2020-06-09] MEDS: Acetaminophen 500 MG Tab PO SCH ×4 (04:00→21:38)
[2020-06-09] MEDS: Albuterol/Ipratropium 3.0-0.5 MG/3 ML Neb Soln INH SCH ×4 (07:02→21:38)
[2020-06-09] MEDS ORDERED: Dextrose 5%-Lactated Ringers 1,000 ML IV SCH (07:30)
[2020-06-09] MEDS: Docusate Sodium 100 MG Cap PO SCH ×2 (07:59→21:38)
[2020-06-09] MEDS: Metoprolol Succinate 25 MG Tab.ER PO SCH (07:59)
[2020-06-09] MEDS ORDERED: Potassium Chloride 20 MEQ Tab.ER PO ONE (08:00)
[2020-06-09] MEDS ORDERED: Furosemide 40 MG/4 ML VIAL IV ONE (08:00)
[2020-06-09] MEDS: Lisinopril 2.5 MG Tab PO SCH (08:01)
--- NOTE | 2020-06-09 09:44 | CR ---
CHEST: Portable 06/09/2020 at 4:09 AM CLINICAL HISTORY:Right thoracotomy COMPARISON:06/08/2020 FINDINGS: Patient is status post right thoracotomy. 2 right chest tubes remain in place. There is no significant pleural fluid or pneumothorax. There is some patchy airspace disease in both lower lobes with slight improvement since prior study. Impression: Status post right thoracotomy Chest tubes remain in place No pneumothorax Improved aeration in the lung bases
[2020-06-09] MEDS: Potassium Chloride 20 MEQ, Lidocaine 1% 2 ML in Sodium Chloride 0.9% 100 ML IV SCH ×2 (09:53→11:56)
[2020-06-09] MEDS ORDERED: Furosemide 20 MG/2 ML VIAL IVPUSH ONE (14:00)
[2020-06-09] MEDS: Pantoprazole 40 MG Vial IVPUSH SCH (15:42)
[2020-06-10] MEDS: Ibuprofen 600 MG Tab PO SCH (02:45)
[2020-06-10] MEDS: Acetaminophen 500 MG Tab PO SCH ×4 (03:16→22:55)
[2020-06-10] MEDS: Albuterol/Ipratropium 3.0-0.5 MG/3 ML Neb Soln INH SCH ×4 (06:58→22:55)
[2020-06-10] MEDS: Haloperidol Lactate 5 MG/ML SDV IVPUSH PRN ×5 (07:11→21:52)
[2020-06-10] MEDS ORDERED: Temazepam 15 MG Cap PO PRN (07:31)
[2020-06-10] MEDS ORDERED: Sodium Chloride 0.9% 10 ML Syringe IV PRN (07:33)
[2020-06-10] MEDS: Furosemide 20 MG/2 ML VIAL IV SCH ×2 (08:01→13:55)
[2020-06-10] MEDS: Docusate Sodium 100 MG Cap PO SCH ×2 (08:01→21:05)
[2020-06-10] MEDS: Tamsulosin 0.4 MG Cap.ER PO SCH ×2 (08:02→22:55)
[2020-06-10] MEDS: Metoprolol Succinate 25 MG Tab.ER PO SCH (08:02)
[2020-06-10] MEDS: Lisinopril 2.5 MG Tab PO SCH (08:02)
[2020-06-10] MEDS: Ibuprofen 400 MG Tab PO SCH ×2 (09:35→17:10)
[2020-06-10] MEDS: hydrOXYzine HCL 100 MG/2 ML SDV IM PRN ×2 (11:01→19:36)
[2020-06-10] MEDS: Pantoprazole 40 MG Tab.CR PO SCH (16:27)
--- NOTE | 2020-06-10 17:29 | PCM.CONS ---
H&P History of Present Illness - General Date of Service: 06/10/20 Admit Problem/Dx: Admission Diagnosis/Problem Admission Diagnosis/Problem Carcinoma of lower lobe, bronchus or lung Source of Information: Provider, RN Notes Reviewed. No: Patient History Limitations: Reports: Altered Mental Status (Confused and agitated) - History of Present Illness Initial Comments - Free Text/Narative: Mr. Jimenez is an 80-year-old gentleman who I been asked to see by Dr. Whitlock for further suggestions concerning management of hyperactive delirium. Mr. Harrison underwent partial right lung resection 5 days ago for management of a pulmonary mass and cancer. Since surgery he has had some ongoing difficulty with agitation and confusion. He has received intermittent doses of Haldol but continues to experience delirium. Has had very poor sleep and has been agitated both day and night. I am unable to obtain a meaningful history or review of systems from the patient because of his confusion. Use of pain medication has been decreased over the past few days there is no evidence of underlying infection or significant metabolic/electrolyte abnormality. Right Shoulder Pain Score (Numeric/FACES): 0 - Related Data Allergies/Adverse Reactions: Allergies Allergy/AdvReac Type Severity Reaction Status Date / Time No Known Allergies Allergy Verified 04/09/19 08:51 Home Medications: Home Meds Metoprolol Succinate [Toprol XL] 25 tab PO DAILY 08/21/18 [History] lisinopriL [Zestril] 2.5 mg PO DAILY 08/21/18 [History] Albuterol Sulfate 3 ml INH ASDIRECTED PRN 03/25/19 [History] Cholecalciferol (Vitamin D3) [Vitamin D3] 2,000 unit PO DAILY 03/25/19 [History] Simvastatin [Zocor] 40 mg PO BEDTIME 04/09/19 [History] Albuterol [Proventil Neb Soln] 2.5 mg .XX Q4HR PRN 06/02/20 [History] Aspirin [Adult Low Dose Aspirin EC] 81 mg PO DAILY 06/02/20 [History] Nitroglycerin 0.3 mg SL ASDIRECTED 06/02/20 [History] Rosuvastatin [Crestor] 10 mg PO DAILY 06/02/20 [History] Past Medical History HEENT History: Reports: Cataract Cardiovascular History: Reports: High Cholesterol, Hypertension, Pacemaker Respiratory History: Reports: COPD, SOB Other Respiratory History: left lung mass removed 5-10 years ago, patient unsure Genitourinary History: Reports: BPH, Prostate Disorder Musculoskeletal History: Reports: Amputation Oncologic (Cancer) History: Reports: Leukemia Other Oncologic History: left lung malignancy - Infectious Disease History Infectious Disease History: Reports: Chicken Pox, Measles - Past Surgical History HEENT Surgical History: Reports: Cataract Surgery Cardiovascular Surgical History: Reports: Coronary Artery Bypass, Percutaneous Transluminal Angioplasty Respiratory Surgical History: Reports: Lung Resection, Other (See Below) GI Surgical History: Reports: Colonoscopy Male Surgical History: Reports: TURP-Transurethral Resection of Prostate Musculoskeletal Surgical History: Reports: Hip Replacement, Knee Replacement Social & Family History - Family History Family Medical History: Noncontributory - Tobacco Use Smoking Status *Q: Former Smoker Used Tobacco, but Quit: Yes Month/Year Tobacco Last Used: 60 years ago - Caffeine Use Caffeine Use: Reports: Coffee Caffeine Use Comment: 6 cups/day - Recreational Drug Use Recreational Drug Use: No H&P Review of Systems - Review of Systems: Review Of Systems: See Below General: Reports: ROS unobtainable (Agitation and confusion) Exam - Exam Exam: See Below - Vital Signs Vital Signs: Last Vital Signs Temp 97.6 F 06/10/20 15:45 Pulse 101 H 06/10/20 14:20 Resp 24 H 06/10/20 15:45 BP 120/61 06/10/20 15:45 Pulse Ox 94 L 06/10/20 15:45 Weight: 126 lb 0.013 oz - Exam Quality Assessment: DVT Prophylaxis General: Alert, Moderate Distress. No: Oriented, Cooperative Neck: Supple, Trachea Midline Lungs: Normal Respiratory Effort, Decreased Breath Sounds. No: Rales, Rhonchi, Wheezing Cardiovascular: Regular Rate, Regular Rhythm, Normal S1, Normal S2. No: Systolic Murmur, Diastolic Murmur GI/Abdominal Exam: Soft, Non-Tender, No Organomegaly, No Distention Back Exam: Normal Inspection, Full Range of Motion Extremities: Non-Tender, No Pedal Edema Skin: Warm, Dry Neuro Extensive - Mental Status: Alert, Disorientation to Person, Disorientation to Place, Disorientation to Time, Memory Loss-Remote Events, Memory Loss-Recent Events. No: Oriented x3, Normal Mood/Affect, Normal Cognition, Memory Intact - Patient Data Lab Results Last 24 hrs: Laboratory Results - last 24 hr 06/10/20 06/10/20 Range/Units 04:05 04:05 WBC 51.8 H* (4.5-11.0) K/uL RBC 3.87 L (4.30-5.90) M/uL Hgb 11.0 L (12.0-15.0) g/dL Hct 35.6 L (40.0-54.0) % MCV 92 (80-98) fL MCH 28 (27-31) pg MCHC 31 L (32-36) % Plt Count 256 (150-400) K/uL Sodium 140 (140-148) mmol/L Potassium 4.3 (3.6-5.2) mmol/L Chloride 102 (100-108) mmol/L Carbon Dioxide 27 (21-32) mmol/L Anion Gap 11.5 (5.0-14.0) mmol/L BUN 36 H (7-18) mg/dL Creatinine 1.5 H (0.8-1.3) mg/dL Est Cr Clr Drug Dosing 31.75 mL/min Estimated GFR (MDRD) 45 L (>60) Glucose 108 H (74-106) mg/dL Calcium 8.3 L (8.5-10.1) mg/dL Phosphorus 3.8 (2.5-4.9) mg/dL Magnesium 3.0 H (1.8-2.4) mg/dL Total Bilirubin 0.8 (0.2-1.0) mg/dL AST 51 H (15-37) U/L ALT 20 (12-78) U/L Alkaline Phosphatase 89 (46-116) U/L NT-Pro-B Natriuret Pep 32627 H (5-450) pg/mL Total Protein 6.3 L (6.4-8.2) g/dL Albumin 2.8 L (3.4-5.0) g/dL Globulin 3.5 (2.3-3.5) g/dL Albumin/Globulin Ratio 0.8 L (1.2-2.2) Result Diagrams: 06/10/20 04:05 06/10/20 04:05 Sepsis Event Note - Evaluation Sepsis Screening Result: Sepsis Risk - Focused Exam Vital Signs: Vital Signs Temp Pulse Pulse Resp BP BP Pulse Ox 06/10/20 15:45 97.6 F 24 H 120/61 94 L 08/22/20 14:20 101 H 06/10/20 14:00 20 112/70 95 06/10/20 11:47 97.4 F 24 H 100/73 95 06/10/20 10:45 100 06/10/20 09:45 20 102/80 94 L 06/10/20 08:02 95 136/94 H 06/10/20 08:00 98 F 20 136/94 H 94 L 06/10/20 06:58 99 06/10/20 06:00 27 H 146/95 H 95 Consult PN Assessment/Plan Procedures: Procedures ASSAY OF CK (CPK) (02/08/15) ASSAY OF CREATININE (07/09/17) ASSAY OF MAGNESIUM (06/06/18) ASSAY OF SERUM POTASSIUM (06/06/18) ASSAY OF TROPONIN QUANT (02/08/15) ASSAY OF URINE POTASSIUM (06/06/18) BLOOD TYPING SEROLOGIC ABO (05/31/20) BLOOD TYPING SEROLOGIC RH(D) (05/31/20) BRONCHOSCOPY W/BIOPSY(S) (11/03/14) CARDIOVASCULAR STRESS TEST (04/09/19) CHEST X-RAY 1 VIEW FRONTAL (02/08/15) COMPLETE CBC AUTOMATED (06/06/18) COMPLETE CBC W/AUTO DIFF WBC (06/06/18) COMPREHEN METABOLIC PANEL (06/06/18) CT THORAX W/DYE (11/13/17) CT THORAX W/O DYE (05/31/20) CULTURE OTHR SPECIMN AEROBIC (11/03/14) DX BRONCHOSCOPE/BRUSH (11/03/14) DX BRONCHOSCOPE/LAVAGE (11/03/14) ELECTROCARDIOGRAM TRACING (06/06/18) EMERGENCY DEPT VISIT (06/06/18) EMERGENCY DEPT VISIT (06/02/18) EMERGENCY DEPT VISIT (06/02/18) EMERGENCY DEPT VISIT (01/25/16) EMERGENCY DEPT VISIT (02/08/15) EMERGENCY DEPT VISIT (10/15/14) EVALUATION OF WHEEZING (11/18/14) EXTRACRANIAL BILAT STUDY (09/15/19) FUNGUS ISOLATION CULTURE (11/03/14) HT MUSCLE IMAGE SPECT MULT (04/09/19) INSERT TEMP BLADDER CATH (01/25/16) METABOLIC PANEL TOTAL CA (06/06/18) MYCOBACTERIA CULTURE (11/03/14) RBC ANTIBODY SCREEN (05/31/20) ROUTINE VENIPUNCTURE (06/06/18) SMEAR FLUORESCENT/ACID STAI (11/03/14) SMEAR GRAM STAIN (11/03/14) SPECIMEN INFECT AGNT CONCNTJ (11/03/14) THER/PROPH/DIAG IV INF INIT (06/06/18) TISSUE EXAM FOR FUNGI (11/03/14) TTE W/DOPPLER COMPLETE (09/15/19) TX/PRO/DX INJ NEW DRUG ADDON (06/06/18) URINALYSIS AUTO W/SCOPE (01/25/16) URINE CULTURE/COLONY COUNT (01/25/16) US EXAM ABDO BACK WALL COMP (12/18/15) Problem List Initiated/Reviewed/Updated: Yes My Orders Last 24 Hours: My Active Orders 06/10/20 17:30 Divalproex Sodium 250 mg PO BID 06/10/20 21:00 Melatonin 9 mg PO BEDTIME Plan: ASSESSMENT AND RECOMMENDATIONS HYPERACTIVE DELIRIUM-I suspect that he has some underlying mild dementia and now during hospitalization sleep deprivation. Use of IV pain medication has decreased over the past few days. White blood cell count is elevated with a history of underlying chronic lymphocytic leukemia. No other obvious evidence of infection or significant metabolic/electrolyte abnormalities. Patient is unable to provide a meaningful history concerning recent symptoms or review of systems because of confusion. -Continue IV Haldol as needed for agitation -Depakote 250 mg p.o. twice daily -Melatonin 9 mg p.o. nightly STATUS POST PARTIAL RIGHT LUNG RESECTION -Postoperative care and management per Dr. Whitlock Requesting Provider: PEPE Date Consult Requested: 06/10/20 Reason for Consult: Hyperactive delirium Patient History Reviewed: Yes Notified Requestor: Yes
[2020-06-10] MEDS: Divalproex Sodium Delayed-Release 250 MG Tab.CR PO SCH ×2 (17:47→22:55)
[2020-06-10] MEDS: Melatonin 3 MG Tab PO SCH (22:55)
[2020-06-11] MEDS: Haloperidol Lactate 5 MG/ML SDV IVPUSH PRN ×2 (00:05→02:24)
[2020-06-11] MEDS: Ibuprofen 400 MG Tab PO SCH (03:02)
[2020-06-11] MEDS: hydrOXYzine HCL 100 MG/2 ML SDV IM PRN (03:09)
[2020-06-11] MEDS: Acetaminophen 500 MG Tab PO SCH ×5 (04:57→21:02)
[2020-06-11] MEDS: Albuterol/Ipratropium 3.0-0.5 MG/3 ML Neb Soln INH SCH ×4 (07:18→21:08)
[2020-06-11] MEDS: D5 1/2 NS w/ 20 mEq/L KCl 1,000 ML IV SCH (08:08)
[2020-06-11] MEDS: Docusate Sodium 100 MG Cap PO SCH ×2 (08:09→21:02)
[2020-06-11] MEDS: Lisinopril 2.5 MG Tab PO SCH (08:10)
[2020-06-11] MEDS: Metoprolol Succinate 25 MG Tab.ER PO SCH (08:12)
[2020-06-11] MEDS: Divalproex Sodium Delayed-Release 250 MG Tab.CR PO SCH ×2 (08:13→21:02)
--- NOTE | 2020-06-11 09:24 | PCM.CONSN ---
- General Info Date of Service: 06/11/20 Subjective Update: Mr. Jimenez experienced more difficulty with agitation last night although he did sleep for approximately 4 hours. 1 dose of Depakote was given last night and he is already received a second dose this morning. He was unable to get melatonin last night because of his agitation. He did receive several doses of Haldol and is more sleepy and lethargic this morning. He is unable to provide a meaningful history concerning symptoms or review of systems because of current sedation. - Patient Data Vitals - Most Recent: Last Vital Signs Temp 98.2 F 06/11/20 08:00 Pulse 107 H 06/11/20 08:12 Resp 32 H 06/11/20 08:00 BP 118/53 L 06/11/20 08:12 Pulse Ox 98 06/11/20 08:00 Weight - Most Recent: 126 lb 0.013 oz I&O - Last 24 Hours: Intake & Output 06/10/20 06/11/20 06/11/20 22:59 06:59 14:59 Intake Total 400 40 200 Output Total 550 740 Balance -150 -700 200 Lab Results Last 24 Hours: Laboratory Results - last 24 hr 06/11/20 06/11/20 Range/Units 04:00 04:00 WBC 48.5 H* (4.5-11.0) K/uL RBC 3.80 L (4.30-5.90) M/uL Hgb 10.9 L (12.0-15.0) g/dL Hct 35.0 L (40.0-54.0) % MCV 92 (80-98) fL MCH 29 (27-31) pg MCHC 31 L (32-36) % Plt Count 255 (150-400) K/uL Sodium 144 (140-148) mmol/L Potassium 3.8 (3.6-5.2) mmol/L Chloride 105 (100-108) mmol/L Carbon Dioxide 28 (21-32) mmol/L Anion Gap 10.8 (5.0-14.0) mmol/L BUN 40 H (7-18) mg/dL Creatinine 1.6 H (0.8-1.3) mg/dL Est Cr Clr Drug Dosing 29.77 mL/min Estimated GFR (MDRD) 42 L (>60) Glucose 119 H (74-106) mg/dL Calcium 8.3 L (8.5-10.1) mg/dL Phosphorus 4.0 (2.5-4.9) mg/dL NT-Pro-B Natriuret Pep 50271 H (5-450) pg/mL Med Orders - Current: Current Medications Acetaminophen (Tylenol Extra Strength) 1,000 mg PO Q6H [facility] Last Admin: 06/11/20 08:10 Dose: 1,000 mg Documented by: Albuterol/Ipratropium (Duoneb 3.0-0.5 Mg/3 Ml) 3 ml INH QIDRT [facility] Last Admin: 06/11/20 07:18 Dose: 3 ml Documented by: Albuterol/Ipratropium (Duoneb 3.0-0.5 Mg/3 Ml) 3 ml INH ASDIRECTED PRN PRN Reason: BREATHING Divalproex Sodium (Divalproex Sodium) 250 mg PO BID [facility] Last Admin: 06/11/20 08:13 Dose: 250 mg Documented by: Docusate Sodium (Colace) 100 mg PO BID [facility] Last Admin: 06/11/20 08:09 Dose: Not Given Documented by: Haloperidol Lactate (Haldol) 2.5 mg IVPUSH Q2H PRN PRN Reason: Agitation Last Admin: 06/11/20 02:24 Dose: 2.5 mg Documented by: Hydroxyzine HCl (Vistaril) 100 mg IM Q4H PRN PRN Reason: pain Last Admin: 06/11/20 03:09 Dose: 100 mg Documented by: Potassium Chloride/Dextrose/Sod Cl (D5 1/2 Ns W/ 20 Meq/L Kcl) 1,000 mls @ 60 mls/hr IV ASDIRECTED [facility] Last Admin: 06/11/20 08:08 Dose: 60 mls/hr Documented by: Lisinopril (Prinivil) 2.5 mg PO DAILY [facility] Last Admin: 06/11/20 08:10 Dose: 2.5 mg Documented by: Melatonin (Melatonin) 9 mg PO BEDTIME [facility] Last Admin: 06/10/20 22:55 Dose: Not Given Documented by: Metoprolol Succinate (Toprol Xl) 25 mg PO DAILY [facility] Last Admin: 06/11/20 08:12 Dose: 25 mg Documented by: Nitroglycerin (Nitrostat) 0.4 mg SL ASDIRECTED PRN PRN Reason: Chest Pain Ondansetron HCl (Zofran) 4 mg IVPUSH Q4H PRN PRN Reason: Nausea/Vomiting Last Admin: 06/07/20 00:46 Dose: 4 mg Documented by: Pantoprazole Sodium (Protonix) 40 mg PO Q24H [facility] Last Admin: 06/10/20 16:27 Dose: 40 mg Documented by: Sodium Chloride (Saline Flush) 10 ml IV ASDIRECTED PRN PRN Reason: LINE MAINTENCE Tamsulosin HCl (Flomax) 0.4 mg PO BEDTIME [facility] Last Admin: 06/10/20 22:55 Dose: Not Given Documented by: Temazepam (Restoril) 15 mg PO BEDTIME PRN PRN Reason: SLEEP Discontinued Medications Acetaminophen (Tylenol Extra Strength) 1,000 mg PO ONETIME ONE Stop: 06/05/20 09:01 Last Admin: 06/05/20 09:17 Dose: 1,000 mg Documented by: Albuterol (Proventil Neb Soln) 2.5 mg NEB ONETIME ONE Stop: 06/05/20 06:28 Last Admin: 06/05/20 08:00 Dose: 2.5 mg Documented by: Bisacodyl (Dulcolax) 10 mg PO BID [facility] Last Admin: 06/08/20 20:10 Dose: 10 mg Documented by: Bupivacaine HCl/Epinephrine Bitart (Marcaine 0.5%/Epinephrine 1:200,000) Confirm Administered Dose 50 ml .ROUTE .STK-MED ONE Stop: 06/05/20 06:56 Last Admin: 06/05/20 14:00 Dose: 20 ml Documented by: Dexamethasone (Dexamethasone) Confirm Administered Dose 4 mg .ROUTE .STK-MED ONE Stop: 06/05/20 08:36 Diphenhydramine HCl (Benadryl) 25 mg IVPUSH Q6H PRN PRN Reason: ITCHING Ephedrine Sulfate (Ephedrine Sulfate) Confirm Administered Dose 50 mg .ROUTE .STK-MED ONE Stop: 06/05/20 08:34 Ephedrine Sulfate (Ephedrine Sulfate) Confirm Administered Dose 50 mg .ROUTE .STK-MED ONE Stop: 06/05/20 12:54 Fentanyl (Sublimaze) Confirm Administered Dose 250 mcg .ROUTE .STK-MED ONE Stop: 06/05/20 08:36 Fentanyl Citrate (Fentanyl In Ns 20 Mcg/Ml 30 Ml Cold Press Loader) 0 mcg IV ASDIRECTED PRN; Protocol PRN Reason: Pain Last Admin: 06/07/20 09:11 Dose: 600 mcg Documented by: Furosemide (Lasix) 20 mg IVPUSH ONETIME ONE Stop: 06/07/20 06:31 Last Admin: 06/07/20 07:16 Dose: 20 mg Documented by: Furosemide (Lasix) 20 mg IVPUSH ONETIME ONE Stop: 06/08/20 06:29 Last Admin: 06/08/20 06:39 Dose: 20 mg Documented by: Furosemide (Lasix) 20 mg IVPUSH ONETIME ONE Stop: 06/08/20 12:01 Last Admin: 06/08/20 11:22 Dose: 20 mg Documented by: Furosemide (Lasix) 40 mg IV ONETIME ONE Stop: 06/09/20 08:01 Last Admin: 06/09/20 07:57 Dose: 40 mg Documented by: Furosemide (Lasix) 20 mg IVPUSH ONETIME ONE Stop: 06/09/20 14:01 Last Admin: 06/09/20 13:58 Dose: 20 mg Documented by: Furosemide (Lasix) 20 mg IV Q6H [facility] Stop: 06/10/20 14:01 Last Admin: 06/10/20 13:55 Dose: 20 mg Documented by: Glycopyrrolate (Robinul) Confirm Administered Dose 1 mg .ROUTE .STK-MED ONE Stop: 06/05/20 08:36 Haloperidol Lactate (Haldol) 2.5 mg IVPUSH Q6H PRN PRN Reason: Agitation Last Admin: 06/10/20 07:11 Dose: 2.5 mg Documented by: Haloperidol Lactate (Haldol) 2.5 mg IVPUSH Q4H PRN PRN Reason: Agitation Last Admin: 06/10/20 19:12 Dose: 2.5 mg Documented by: Heparin Sodium (Porcine) (Heparin Sodium) Confirm Administered Dose 5,000 units .ROUTE .STK-MED ONE Stop: 06/05/20 08:48 Cefazolin Sodium/Dextrose 2 gm (/ Premix) 50 mls @ 100 mls/hr IV ONETIME ONE Stop: 06/05/20 09:29 Last Admin: 06/05/20 11:05 Dose: 100 mls/hr Documented by: Dextrose/Lactated Ringer's (Dextrose 5%-Lactated Ringers) 1,000 mls @ 100 mls/hr IV ASDIRECTED [facility] Last Admin: 06/05/20 15:20 Dose: 100 mls/hr Documented by: Sodium Chloride (Normal Saline) Confirm Administered Dose 10 mls @ as directed .ROUTE .[facility] [place]-MED ONE Stop: 06/05/20 08:34 Sodium Chloride (Normal Saline) Confirm Administered Dose 10 mls @ as directed .ROUTE .K-MED ONE Stop: 06/05/20 08:41 Fentanyl 2,500 mcg/ Sodium (Chloride) 250 mls @ 0 mls/hr EPIDUR TITRATE [facility]; Protocol Last Titration: 06/07/20 05:46 Dose: 0 mls/hr Documented by: Lidocaine HCl (Xylocaine-Mpf 1%) Confirm Administered Dose 2 mls @ as directed .ROUTE .[facility] ONE Stop: 06/05/20 11:37 Sodium Chloride (Normal Saline) Confirm Administered Dose 500 mls @ as directed .ROUTE .[facility] ONE Stop: 06/05/20 12:57 Sodium Chloride (Normal Saline) Confirm Administered Dose 500 mls @ as directed .ROUTE .[facility] ONE Stop: 06/05/20 12:57 Dextrose/Lactated Ringer's (Dextrose 5%-Lactated Ringers) 1,000 mls @ 150 mls/hr IV ASDIRECTED [facility] Last Admin: 06/06/20 03:00 Dose: 150 mls/hr Documented by: Cefazolin Sodium/Dextrose 2 gm (/ Premix) 50 mls @ 100 mls/hr IV Q8H [facility] Stop: 06/07/20 02:29 Last Admin: 06/07/20 01:41 Dose: 100 mls/hr Documented by: Dextrose/Lactated Ringer's (Dextrose 5%-Lactated Ringers) 1,000 mls @ 100 mls/hr IV ASDIRECTED [facility] Last Admin: 06/08/20 02:23 Dose: 100 mls/hr Documented by: Lactated Ringer's (Ringers, Lactated) 500 mls @ 500 mls/hr IV ONETIME ONE Stop: 06/07/20 03:14 Last Admin: 06/07/20 02:10 Dose: 500 mls/hr Documented by: Lactated Ringer's (Ringers, Lactated) 500 mls @ 0 mls/hr IV ASDIRECTED [facility] Lactated Ringer's (Ringers, Lactated) 500 mls @ 500 mls/hr IV ONETIME ONE Stop: 06/07/20 06:44 Last Admin: 06/07/20 05:45 Dose: 500 mls/hr Documented by: Magnesium Sulfate 2 gm/ Premix 50 mls @ 25 mls/hr IV Q6H [facility] Stop: 06/09/20 03:59 Last Admin: 06/09/20 02:01 Dose: 25 mls/hr Documented by: Dextrose/Lactated Ringer's (Dextrose 5%-Lactated Ringers) 1,000 mls @ 60 mls/hr IV ASDIRECTED [facility] Last Admin: 06/08/20 21:35 Dose: 60 mls/hr Documented by: Potassium Phosphate 15 mmol/ (Premix) 250 mls @ 85 mls/hr IV Q3H [facility] Stop: 06/08/20 18:57 Last Admin: 06/08/20 17:50 Dose: 85 mls/hr Documented by: Dextrose/Lactated Ringer's (Dextrose 5%-Lactated Ringers) 1,000 mls @ 0 mls/hr IV ASDIRECTED [facility] Potassium Chloride 20 meq/Lidocaine HCl 2 ml/ Sodium Chloride 112 mls @ 56 mls/hr IV Q2H [facility] Stop: 06/09/20 13:59 Last Admin: 06/09/20 11:56 Dose: 56 mls/hr Documented by: Ibuprofen (Motrin) 600 mg PO Q6H [facility] Last Admin: 06/10/20 02:45 Dose: 600 mg Documented by: Ibuprofen (Motrin) 400 mg PO Q8H [facility] Last Admin: 06/11/20 03:02 Dose: Not Given Documented by: Ketorolac Tromethamine (Toradol) 30 mg IVPUSH ONETIME ONE Stop: 06/08/20 08:01 Last Admin: 06/08/20 07:53 Dose: 30 mg Documented by: Lidocaine HCl (Xylocaine 2% Viscous) Confirm Administered Dose 15 ml .ROUTE .STK-MED ONE Stop: 06/05/20 06:55 Last Admin: 06/05/20 11:50 Dose: 15 ml Documented by: Lidocaine HCl (Xylocaine 4% Top Soln) Confirm Administered Dose 50 ml .ROUTE .STK-MED ONE Stop: 06/05/20 06:56 Last Admin: 06/05/20 11:50 Dose: 50 ml Documented by: Meropenem (Merrem) Confirm Administered Dose 500 mg .ROUTE .STK-MED ONE Stop: 06/05/20 13:27 Last Admin: 06/05/20 13:12 Dose: 500 mg Documented by: Metoprolol Succinate (Toprol Xl) 25 mg PO ONETIME ONE Stop: 06/05/20 08:31 Last Admin: 06/05/20 08:51 Dose: 25 mg Documented by: Naloxone HCl (Narcan) 0.1 mg IVPUSH Q5M PRN PRN Reason: RESP RATE LESS THAN 6/MINUTE Naloxone HCl (Narcan) 0.4 mg IV ASDIRECTED PRN PRN Reason: ITCHING Last Admin: 06/06/20 20:26 Dose: 0.4 mg Documented by: Naloxone HCl (Narcan) 0.1 mg IV ASDIRECTED PRN PRN Reason: decreased respiratory rate Neostigmine Methylsulfate (Neostigmine) Confirm Administered Dose 5 mg .ROUTE .STK-MED ONE Stop: 06/05/20 08:36 Ondansetron HCl (Zofran) Confirm Administered Dose 4 mg .ROUTE .STK-MED ONE Stop: 06/05/20 08:36 Pantoprazole Sodium (Protonix Iv) 40 mg IVPUSH Q24H [facility] Last Admin: 06/09/20 15:42 Dose: 40 mg Documented by: Potassium Chloride (Klor-Con M20) 40 meq PO ONETIME ONE Stop: 06/09/20 08:01 Last Admin: 06/09/20 07:59 Dose: 40 meq Documented by: Propofol (Diprivan 20 Ml) Confirm Administered Dose 200 mg .ROUTE .STK-MED ONE Stop: 06/05/20 08:36 Rocuronium [place] (Zemuron) Confirm Administered Dose 50 mg .ROUTE .STK-MED ONE Stop: 06/05/20 08:36 Succinylcholine Chloride (Quelicin) Confirm Administered Dose 200 mg .ROUTE .STK-MED ONE Stop: 06/05/20 08:36 - Exam Quality Assessment: DVT Prophylaxis General: Sedated, Lethargic Lungs: Normal Respiratory Effort, Decreased Breath Sounds, Rhonchi Cardiovascular: Regular Rate, Regular Rhythm, No Murmurs GI/Abdominal Exam: Soft, Non-Tender, No Organomegaly, No Distention Extremities: Non-Tender, No Pedal Edema Sepsis Event Note - Evaluation Sepsis Screening Result: Sepsis Risk - Focused Exam Vital Signs: Vital Signs Temp Pulse Pulse Resp BP BP Pulse Ox 06/11/20 08:12 107 H 118/53 L 06/11/20 08:10 118/53 L 06/11/20 08:00 98.2 F 100 32 H 118/53 L 98 06/11/20 07:18 109 H 06/11/20 04:00 96 F L 26 H 122/60 95 06/11/20 02:00 28 H 140/71 94 L 06/11/20 00:00 96 F L 26 H 136/70 90 L 06/10/20 22:00 21 H 131/37 L 96 Consult PN Assessment/Plan Procedures: Procedures ASSAY OF CK (CPK) (02/08/15) ASSAY OF CREATININE (07/09/17) ASSAY OF MAGNESIUM (06/06/18) ASSAY OF SERUM POTASSIUM (06/06/18) ASSAY OF TROPONIN QUANT (02/08/15) ASSAY OF URINE POTASSIUM (06/06/18) BLOOD TYPING SEROLOGIC ABO (05/31/20) BLOOD TYPING SEROLOGIC RH(D) (05/31/20) BRONCHOSCOPY W/BIOPSY(S) (11/03/14) CARDIOVASCULAR STRESS TEST (04/09/19) CHEST X-RAY 1 VIEW FRONTAL (02/08/15) COMPLETE CBC AUTOMATED (06/06/18) COMPLETE CBC W/AUTO DIFF WBC (06/06/18) COMPREHEN METABOLIC PANEL (06/06/18) CT THORAX W/DYE (11/13/17) CT THORAX W/O DYE (05/31/20) CULTURE OTHR SPECIMN AEROBIC (11/03/14) DX BRONCHOSCOPE/BRUSH (11/03/14) DX BRONCHOSCOPE/LAVAGE (11/03/14) ELECTROCARDIOGRAM TRACING (06/06/18) EMERGENCY DEPT VISIT (06/06/18) EMERGENCY DEPT VISIT (06/02/18) EMERGENCY DEPT VISIT (06/02/18) EMERGENCY DEPT VISIT (01/25/16) EMERGENCY DEPT VISIT (02/08/15) EMERGENCY DEPT VISIT (12/27/14) EVALUATION OF WHEEZING (11/18/14) EXTRACRANIAL BILAT STUDY (09/15/19) FUNGUS ISOLATION CULTURE (11/03/14) HT MUSCLE IMAGE SPECT MULT (04/09/19) INSERT TEMP BLADDER CATH (01/25/16) METABOLIC PANEL TOTAL CA (06/06/18) MYCOBACTERIA CULTURE (11/03/14) RBC ANTIBODY SCREEN (05/31/20) ROUTINE VENIPUNCTURE (06/06/18) SMEAR FLUORESCENT/ACID STAI (11/03/14) SMEAR GRAM STAIN (11/03/14) SPECIMEN INFECT AGNT CONCNTJ (11/03/14) THER/PROPH/DIAG IV INF INIT (06/06/18) TISSUE EXAM FOR FUNGI (11/03/14) TTE W/DOPPLER COMPLETE (09/15/19) TX/PRO/DX INJ NEW DRUG ADDON (06/06/18) URINALYSIS AUTO W/SCOPE (01/25/16) URINE CULTURE/COLONY COUNT (01/25/16) US EXAM ABDO BACK WALL COMP (12/18/15) Problem List Initiated/Reviewed/Updated: Yes My Orders Last 24 Hours: My Active Orders 06/10/20 17:30 Divalproex Sodium 250 mg PO BID 06/10/20 21:00 Melatonin 9 mg PO BEDTIME 06/10/20 21:47 Haloperidol Lactate [Haldol] 2.5 mg IVPUSH Q2H PRN Plan: ASSESSMENT AND RECOMMENDATIONS HYPERACTIVE DELIRIUM-I suspect that he has some underlying mild dementia and now during hospitalization sleep deprivation. Agitated last night, he now has had 2 doses of Depakote. Unable to take melatonin last night because of agitation. He did receive several doses of Haldol last night because of his severe agitation. This morning he is more lethargic and sedated. -Continue IV Haldol as needed for agitation -Depakote 250 mg p.o. twice daily -Melatonin 9 mg p.o. nightly STATUS POST PARTIAL RIGHT LUNG RESECTION -Postoperative care and management per Dr. Whitlock
[2020-06-11] MEDS: Pantoprazole 40 MG Tab.CR PO SCH (15:37)
[2020-06-11] MEDS: Melatonin 3 MG Tab PO SCH (21:02)
[2020-06-11] MEDS: Tamsulosin 0.4 MG Cap.ER PO SCH (21:02)
[2020-06-12] MEDS: D5 1/2 NS w/ 20 mEq/L KCl 1,000 ML IV SCH (00:17)
[2020-06-12] MEDS: Acetaminophen 500 MG Tab PO SCH ×4 (04:25→21:18)
[2020-06-12] MEDS: Albuterol/Ipratropium 3.0-0.5 MG/3 ML Neb Soln INH SCH ×4 (06:58→21:17)
[2020-06-12] MEDS ORDERED: Furosemide 20 MG/2 ML VIAL IV ONE (08:30)
[2020-06-12] MEDS: Metoprolol Succinate 25 MG Tab.ER PO SCH (09:36)
[2020-06-12] MEDS: Divalproex Sodium Delayed-Release 250 MG Tab.CR PO SCH (09:36)
--- NOTE | 2020-06-12 09:37 | PCM.CONSN ---
- General Info Date of Service: 06/12/20 Subjective Update: There were no acute events overnight. The patient is still somewhat sleepy this morning but he is more alert and interactive today. His strength is slowly improving and he was able to walk to the bathroom and back. He is not complaining of any pain in the right side of his chest. He does feel a little short of breath and has difficulty taking a deep breath. No complaints of nausea or abdominal pain. He has not required any Haldol for breakthrough agit ation. Functional Status: Reports: Pain Controlled - Review of Systems General: Denies: Fever Neurological: Reports: Confusion - Patient Data Vitals - Most Recent: Last Vital Signs Temp 35.7 C L 06/12/20 04:00 Pulse 106 H 06/12/20 06:58 Resp 17 06/12/20 06:00 BP 146/86 H 06/12/20 06:00 Pulse Ox 93 L 06/12/20 06:00 Weight - Most Recent: 57.153 kg I&O - Last 24 Hours: Intake & Output 06/11/20 06/12/20 06/12/20 22:59 06:59 14:59 Intake Total 946 Output Total 725 850 Balance -725 96 Lab Results Last 24 Hours: Laboratory Results - last 24 hr 06/12/20 06/12/20 Range/Units 04:35 04:35 WBC 58.2 H* (4.5-11.0) K/uL RBC 3.94 L (4.30-5.90) M/uL Hgb 11.3 L (12.0-15.0) g/dL Hct 37.0 L (40.0-54.0) % MCV 94 (80-98) fL MCH 29 (27-31) pg MCHC 31 L (32-36) % Plt Count 286 (150-400) K/uL Sodium 143 (140-148) mmol/L Potassium 4.1 (3.6-5.2) mmol/L Chloride 106 (100-108) mmol/L Carbon Dioxide 28 (21-32) mmol/L Anion Gap 9.4 (5.0-14.0) mmol/L BUN 36 H (7-18) mg/dL Creatinine 1.4 H (0.8-1.3) mg/dL Est Cr Clr Drug Dosing 34.02 mL/min Estimated GFR (MDRD) 49 L (>60) Glucose 116 H (74-106) mg/dL Calcium 8.6 (8.5-10.1) mg/dL Phosphorus 4.0 (2.5-4.9) mg/dL Magnesium 2.6 H (1.8-2.4) mg/dL Total Bilirubin 0.7 (0.2-1.0) mg/dL AST 47 H (15-37) U/L ALT 32 (12-78) U/L Alkaline Phosphatase 91 (46-116) U/L NT-Pro-B Natriuret Pep 00438 H (5-450) pg/mL Total Protein 6.3 L (6.4-8.2) g/dL Albumin 2.4 L (3.4-5.0) g/dL Globulin 3.9 H (2.3-3.5) g/dL Albumin/Globulin Ratio 0.6 L (1.2-2.2) Med Orders - Current: Current Medications Acetaminophen (Tylenol Extra Strength) 1,000 mg PO Q6H [facility] Last Admin: 06/12/20 04:25 Dose: 1,000 mg Documented by: Albuterol/Ipratropium (Duoneb 3.0-0.5 Mg/3 Ml) 3 ml INH QIDRT [facility] Last Admin: 06/12/20 06:58 Dose: 3 ml Documented by: Albuterol/Ipratropium (Duoneb 3.0-0.5 Mg/3 Ml) 3 ml INH ASDIRECTED PRN PRN Reason: BREATHING Divalproex Sodium (Divalproex Sodium) 125 mg PO BID [facility] Docusate Sodium (Colace) 100 mg PO BID [facility] Last Admin: 06/11/20 21:02 Dose: 100 mg Documented by: Haloperidol Lactate (Haldol) 2.5 mg IVPUSH Q2H PRN PRN Reason: Agitation Last Admin: 06/11/20 02:24 Dose: 2.5 mg Documented by: Hydroxyzine HCl (Vistaril) 100 mg IM Q4H PRN PRN Reason: pain Last Admin: 06/11/20 03:09 Dose: 100 mg Documented by: Potassium Chloride/Dextrose/Sod Cl (D5 1/2 Ns W/ 20 Meq/L Kcl) 1,000 mls @ 60 mls/hr IV ASDIRECTED [facility] Last Admin: 06/12/20 00:17 Dose: 60 mls/hr Documented by: Lisinopril (Prinivil) 2.5 mg PO DAILY [facility] Last Admin: 06/11/20 08:10 Dose: 2.5 mg Documented by: Melatonin (Melatonin) 9 mg PO BEDTIME [facility] Last Admin: 06/11/20 21:02 Dose: 9 mg Documented by: Metoprolol Succinate (Toprol Xl) 25 mg PO DAILY [facility] Last Admin: 06/11/20 08:12 Dose: 25 mg Documented by: Nitroglycerin (Nitrostat) 0.4 mg SL ASDIRECTED PRN PRN Reason: Chest Pain Ondansetron HCl (Zofran) 4 mg IVPUSH Q4H PRN PRN Reason: Nausea/Vomiting Last Admin: 06/07/20 00:46 Dose: 4 mg Documented by: Pantoprazole Sodium (Protonix) 40 mg PO Q24H [facility] Last Admin: 06/11/20 15:37 Dose: 40 mg Documented by: Sodium Chloride (Saline Flush) 10 ml IV ASDIRECTED PRN PRN Reason: LINE MAINTENCE Tamsulosin HCl (Flomax) 0.4 mg PO BEDTIME [facility] Last Admin: 06/11/20 21:02 Dose: 0.4 mg Documented by: Temazepam (Restoril) 15 mg PO BEDTIME PRN PRN Reason: SLEEP Discontinued Medications Acetaminophen (Tylenol Extra Strength) 1,000 mg PO ONETIME ONE Stop: 06/05/20 09:01 Last Admin: 06/05/20 09:17 Dose: 1,000 mg Documented by: Albuterol (Proventil Neb Soln) 2.5 mg NEB ONETIME ONE Stop: 06/05/20 06:28 Last Admin: 06/05/20 08:00 Dose: 2.5 mg Documented by: Bisacodyl (Dulcolax) 10 mg PO BID [facility] Last Admin: 06/08/20 20:10 Dose: 10 mg Documented by: Bupivacaine HCl/Epinephrine Bitart (Marcaine 0.5%/Epinephrine 1:200,000) Confirm Administered Dose 50 ml .ROUTE .STK-MED ONE Stop: 06/05/20 06:56 Last Admin: 06/05/20 14:00 Dose: 20 ml Documented by: Dexamethasone (Dexamethasone) Confirm Administered Dose 4 mg .ROUTE .STK-MED ONE Stop: 06/05/20 08:36 Diphenhydramine HCl (Benadryl) 25 mg IVPUSH Q6H PRN PRN Reason: ITCHING Divalproex Sodium (Divalproex Sodium) 250 mg PO BID [facility] Last Admin: 06/11/20 21:02 Dose: 250 mg Documented by: Ephedrine Sulfate (Ephedrine Sulfate) Confirm Administered Dose 50 mg .ROUTE .STK-MED ONE Stop: 06/05/20 08:34 Ephedrine Sulfate (Ephedrine Sulfate) Confirm Administered Dose 50 mg .ROUTE .STK-MED ONE Stop: 06/05/20 12:54 Fentanyl (Sublimaze) Confirm Administered Dose 250 mcg .ROUTE .STK-MED ONE Stop: 06/05/20 08:36 Fentanyl Citrate (Fentanyl In Ns 20 Mcg/Ml 30 Ml [employer]) 0 mcg IV ASDIRECTED PRN; Protocol PRN Reason: Pain Last Admin: 06/07/20 09:11 Dose: 600 mcg Documented by: Furosemide (Lasix) 20 mg IVPUSH ONETIME ONE Stop: 06/07/20 06:31 Last Admin: 06/07/20 07:16 Dose: 20 mg Documented by: Furosemide (Lasix) 20 mg IVPUSH ONETIME ONE Stop: 06/08/20 06:29 Last Admin: 06/08/20 06:39 Dose: 20 mg Documented by: Furosemide (Lasix) 20 mg IVPUSH ONETIME ONE Stop: 06/08/20 12:01 Last Admin: 06/08/20 11:22 Dose: 20 mg Documented by: Furosemide (Lasix) 40 mg IV ONETIME ONE Stop: 06/09/20 08:01 Last Admin: 06/09/20 07:57 Dose: 40 mg Documented by: Furosemide (Lasix) 20 mg IVPUSH ONETIME ONE Stop: 06/09/20 14:01 Last Admin: 06/09/20 13:58 Dose: 20 mg Documented by: Furosemide (Lasix) 20 mg IV Q6H [facility] Stop: 06/10/20 14:01 Last Admin: 06/10/20 13:55 Dose: 20 mg Documented by: Furosemide (Lasix) 20 mg IV ONETIME ONE Stop: 06/12/20 08:31 Last Admin: 06/12/20 09:35 Dose: 20 mg Documented by: Glycopyrrolate (Robinul) Confirm Administered Dose 1 mg .ROUTE .STK-MED ONE Stop: 06/05/20 08:36 Haloperidol Lactate (Haldol) 2.5 mg IVPUSH Q6H PRN PRN Reason: Agitation Last Admin: 06/10/20 07:11 Dose: 2.5 mg Documented by: Haloperidol Lactate (Haldol) 2.5 mg IVPUSH Q4H PRN PRN Reason: Agitation Last Admin: 06/10/20 19:12 Dose: 2.5 mg Documented by: Heparin Sodium (Porcine) (Heparin Sodium) Confirm Administered Dose 5,000 units .ROUTE .STK-MED ONE Stop: 06/05/20 08:48 Cefazolin Sodium/Dextrose 2 gm (/ Premix) 50 mls @ 100 mls/hr IV ONETIME ONE Stop: 06/05/20 09:29 Last Admin: 06/05/20 11:05 Dose: 100 mls/hr Documented by: Dextrose/Lactated Ringer's (Dextrose 5%-Lactated Ringers) 1,000 mls @ 100 mls/hr IV ASDIRECTED [facility] Last Admin: 06/05/20 15:20 Dose: 100 mls/hr Documented by: Sodium Chloride (Normal Saline) Confirm Administered Dose 10 mls @ as directed .ROUTE .STK-MED ONE Stop: 06/05/20 08:34 Sodium Chloride (Normal Saline) Confirm Administered Dose 10 mls @ as directed .ROUTE .STK-MED ONE Stop: 06/05/20 08:41 Fentanyl 2,500 mcg/ Sodium (Chloride) 250 mls @ 0 mls/hr EPIDUR TITRATE [facility]; Protocol Last Titration: 06/07/20 05:46 Dose: 0 mls/hr Documented by: Lidocaine HCl (Xylocaine-Mpf 1%) Confirm Administered Dose 2 mls @ as directed .ROUTE .STK-MED ONE Stop: 06/05/20 11:37 Sodium Chloride (Normal Saline) Confirm Administered Dose 500 mls @ as directed .ROUTE .STK-MED ONE Stop: 06/05/20 12:57 Sodium Chloride (Normal Saline) Confirm Administered Dose 500 mls @ as directed .ROUTE .STK-MED ONE Stop: 06/05/20 12:57 Dextrose/Lactated Ringer's (Dextrose 5%-Lactated Ringers) 1,000 mls @ 150 mls/hr IV ASDIRECTED [facility] Last Admin: 06/06/20 03:00 Dose: 150 mls/hr Documented by: Cefazolin Sodium/Dextrose 2 gm (/ Premix) 50 mls @ 100 mls/hr IV Q8H [facility] Stop: 06/07/20 02:29 Last Admin: 06/07/20 01:41 Dose: 100 mls/hr Documented by: Dextrose/Lactated Ringer's (Dextrose 5%-Lactated Ringers) 1,000 mls @ 100 mls/hr IV ASDIRECTED [facility] Last Admin: 06/08/20 02:23 Dose: 100 mls/hr Documented by: Lactated Ringer's (Ringers, Lactated) 500 mls @ 500 mls/hr IV ONETIME ONE Stop: 06/07/20 03:14 Last Admin: 06/07/20 02:10 Dose: 500 mls/hr Documented by: Lactated Ringer's (Ringers, Lactated) 500 mls @ 0 mls/hr IV ASDIRECTED [facility] Lactated Ringer's (Ringers, Lactated) 500 mls @ 500 mls/hr IV ONETIME ONE Stop: 06/07/20 06:44 Last Admin: 06/07/20 05:45 Dose: 500 mls/hr Documented by: Magnesium Sulfate 2 gm/ Premix 50 mls @ 25 mls/hr IV Q6H [facility] Stop: 06/09/20 03:59 Last Admin: 06/09/20 02:01 Dose: 25 mls/hr Documented by: Dextrose/Lactated Ringer's (Dextrose 5%-Lactated Ringers) 1,000 mls @ 60 mls/hr IV ASDIRECTED [facility] Last Admin: 06/08/20 21:35 Dose: 60 mls/hr Documented by: Potassium Phosphate 15 mmol/ (Premix) 250 mls @ 85 mls/hr IV Q3H [facility] Stop: 06/08/20 18:57 Last Admin: 06/08/20 17:50 Dose: 85 mls/hr Documented by: Dextrose/Lactated Ringer's (Dextrose 5%-Lactated Ringers) 1,000 mls @ 0 mls/hr IV ASDIRECTED [facility] Potassium Chloride 20 meq/Lidocaine HCl 2 ml/ Sodium Chloride 112 mls @ 56 mls/hr IV Q2H [facility] Stop: 06/09/20 13:59 Last Admin: 06/09/20 11:56 Dose: 56 mls/hr Documented by: Ibuprofen (Motrin) 600 mg PO Q6H [facility] Last Admin: 06/10/20 02:45 Dose: 600 mg Documented by: Ibuprofen (Motrin) 400 mg PO Q8H [facility] Last Admin: 06/11/20 03:02 Dose: Not Given Documented by: Ketorolac Tromethamine (Toradol) 30 mg IVPUSH ONETIME ONE Stop: 06/08/20 08:01 Last Admin: 06/08/20 07:53 Dose: 30 mg Documented by: Lidocaine HCl (Xylocaine 2% Viscous) Confirm Administered Dose 15 ml .ROUTE .STK-MED ONE Stop: 06/05/20 06:55 Last Admin: 06/05/20 11:50 Dose: 15 ml Documented by: Lidocaine HCl (Xylocaine 4% Top Soln) Confirm Administered Dose 50 ml .ROUTE .STK-MED ONE Stop: 06/05/20 06:56 Last Admin: 06/05/20 11:50 Dose: 50 ml Documented by: Meropenem (Merrem) Confirm Administered Dose 500 mg .ROUTE .STK-MED ONE Stop: 06/05/20 13:27 Last Admin: 06/05/20 13:12 Dose: 500 mg Documented by: Metoprolol Succinate (Toprol Xl) 25 mg PO ONETIME ONE Stop: 06/05/20 08:31 Last Admin: 06/05/20 08:51 Dose: 25 mg Documented by: Naloxone HCl (Narcan) 0.1 mg IVPUSH Q5M PRN PRN Reason: RESP RATE LESS THAN 6/MINUTE Naloxone HCl (Narcan) 0.4 mg IV ASDIRECTED PRN PRN Reason: ITCHING Last Admin: 06/06/20 20:26 Dose: 0.4 mg Documented by: Naloxone HCl (Narcan) 0.1 mg IV ASDIRECTED PRN PRN Reason: decreased respiratory rate Neostigmine Methylsulfate (Neostigmine) Confirm Administered Dose 5 mg .ROUTE .STK-MED ONE Stop: 06/05/20 08:36 Ondansetron HCl (Zofran) Confirm Administered Dose 4 mg .ROUTE .STK-MED ONE Stop: 06/05/20 08:36 Pantoprazole Sodium (Protonix Iv) 40 mg IVPUSH Q24H [facility] Last Admin: 06/09/20 15:42 Dose: 40 mg Documented by: Potassium Chloride (Klor-Con M20) 40 meq PO ONETIME ONE Stop: 06/09/20 08:01 Last Admin: 06/09/20 07:59 Dose: 40 meq Documented by: Propofol (Diprivan 20 Ml) Confirm Administered Dose 200 mg .ROUTE .STK-MED ONE Stop: 06/05/20 08:36 Rocuronium [place] (Zemuron) Confirm Administered Dose 50 mg .ROUTE .STK-MED ONE Stop: 06/05/20 08:36 Succinylcholine Chloride (Quelicin) Confirm Administered Dose 200 mg .ROUTE .STK-MED ONE Stop: 06/05/20 08:36 - Exam Quality Assessment: No: Supplemental Oxygen General: Alert, Cooperative, No Acute Distress, Lethargic HEENT: Pupils Equal Lungs: Normal Respiratory Effort, Crackles (few right side ) Cardiovascular: Regular Rate, Regular Rhythm GI/Abdominal Exam: Soft, No Distention Extremities: No Pedal Edema. No: Increased Warmth Skin: Warm, Dry Psy/Mental Status: Alert. No: Agitated Sepsis Event Note - Evaluation Sepsis Screening Result: No Definite Risk - Focused Exam Vital Signs: Vital Signs Temp Pulse Resp BP Pulse Ox 06/12/20 06:58 106 H 06/12/20 06:00 17 146/86 H 93 L 06/12/20 04:00 35.7 C L 22 H 107/68 93 L 06/12/20 02:00 23 H 151/77 H 97 06/12/20 00:00 35.8 C L 23 H 99/46 L 92 L 06/11/20 22:00 19 154/79 H 92 L Consult PN Assessment/Plan Procedures: Procedures ASSAY OF CK (CPK) (02/08/15) ASSAY OF CREATININE (07/09/17) ASSAY OF MAGNESIUM (06/06/18) ASSAY OF SERUM POTASSIUM (06/06/18) ASSAY OF TROPONIN QUANT (02/08/15) ASSAY OF URINE POTASSIUM (06/06/18) BLOOD TYPING SEROLOGIC ABO (05/31/20) BLOOD TYPING SEROLOGIC RH(D) (05/31/20) BRONCHOSCOPY W/BIOPSY(S) (11/03/14) CARDIOVASCULAR STRESS TEST (04/09/19) CHEST X-RAY 1 VIEW FRONTAL (02/08/15) COMPLETE CBC AUTOMATED (06/06/18) COMPLETE CBC W/AUTO DIFF WBC (06/06/18) COMPREHEN METABOLIC PANEL (06/06/18) CT THORAX W/DYE (11/13/17) CT THORAX W/O DYE (05/31/20) CULTURE OTHR SPECIMN AEROBIC (11/03/14) DX BRONCHOSCOPE/BRUSH (11/03/14) DX BRONCHOSCOPE/LAVAGE (11/03/14) ELECTROCARDIOGRAM TRACING (06/06/18) EMERGENCY DEPT VISIT (06/06/18) EMERGENCY DEPT VISIT (06/02/18) EMERGENCY DEPT VISIT (06/02/18) EMERGENCY DEPT VISIT (01/25/16) EMERGENCY DEPT VISIT (02/08/15) EMERGENCY DEPT VISIT (10/15/14) EVALUATION OF WHEEZING (11/18/14) EXTRACRANIAL BILAT STUDY (09/15/19) FUNGUS ISOLATION CULTURE (11/03/14) HT MUSCLE IMAGE SPECT MULT (04/09/19) INSERT TEMP BLADDER CATH (01/25/16) METABOLIC PANEL TOTAL CA (06/06/18) MYCOBACTERIA CULTURE (11/03/14) RBC ANTIBODY SCREEN (05/31/20) ROUTINE VENIPUNCTURE (06/06/18) SMEAR FLUORESCENT/ACID STAI (11/03/14) SMEAR GRAM STAIN (11/03/14) SPECIMEN INFECT AGNT CONCNTJ (11/03/14) THER/PROPH/DIAG IV INF INIT (06/06/18) TISSUE EXAM FOR FUNGI (11/03/14) TTE W/DOPPLER COMPLETE (09/15/19) TX/PRO/DX INJ NEW DRUG ADDON (06/06/18) URINALYSIS AUTO W/SCOPE (01/25/16) URINE CULTURE/COLONY COUNT (01/25/16) US EXAM ABDO BACK WALL COMP (12/18/15) Problem List Initiated/Reviewed/Updated: Yes My Orders Last 24 Hours: My Active Orders 06/12/20 09:45 Divalproex Sodium 125 mg PO BID Plan: ASSESSMENT AND RECOMMENDATIONS HYPERACTIVE DELIRIUM-I suspect that he has some underlying mild dementia and now during hospitalization sleep deprivation. Seems to be coming around with much less agitation and improved mental status. He has been somewhat lethargic over the past 24 hours and this could be related to his Depakote. -Continue IV Haldol as needed for severe agitation -Discontinue Depakote -Melatonin 9 mg at bedtime STATUS POST PARTIAL RIGHT LUNG RESECTION-pain very well controlled and strength is improving. -Postoperative care and management per Dr. Kamlesh Mora MD
[2020-06-12] MEDS: Lisinopril 2.5 MG Tab PO SCH (09:38)
--- NOTE | 2020-06-12 09:50 | CR ---
CHEST: Portable 06/10/2020 at 4:13 AM CLINICAL HISTORY:Chest tube COMPARISON: Prior day FINDINGS: Patient is status post right thoracotomy..2 right chest tubes remain in place. There is no pneumothorax. There is some improvement in aeration at the lung bases. Impression: Status post right thoracotomy 2 right chest tubes remain in place Improved aeration at the lung bases
[2020-06-12] MEDS ORDERED: Divalproex Sodium Delayed-Release 125 MG Cap.Sprink PO SCH (10:00)
[2020-06-12] MEDS: Docusate Sodium 100 MG Cap PO SCH ×2 (10:07→21:18)
--- NOTE | 2020-06-12 10:55 | CR ---
CHEST: Portable 06/11/2020 at 5:32 AM CLINICAL HISTORY:Right thoracotomy COMPARISON:06/10/2020 FINDINGS: Patient is status post right thoracotomy. 2 right chest tubes are in place. There is no pneumothorax. There is patchy atelectasis in the right infrahilar region similar to prior study. Impression: Right thoracotomy Right chest tubes remain in place No pneumothorax Persistent right infrahilar airspace disease. CHEST: Portable 06/12/2020 at 4:26 AM COMPARISON:06/11/2020 FINDINGS: [address] There is no pneumothorax. There is persistent airspace disease in the right infrahilar region. Impression: Stable postoperative chest with [address]
[2020-06-12] MEDS: Pantoprazole 40 MG Tab.CR PO SCH (16:36)
[2020-06-12] MEDS: Melatonin 3 MG Tab PO SCH (21:18)
[2020-06-12] MEDS: Tamsulosin 0.4 MG Cap.ER PO SCH (21:18)
[2020-06-13] MEDS: Acetaminophen 500 MG Tab PO SCH ×4 (03:17→22:29)
[2020-06-13] MEDS: Albuterol/Ipratropium 3.0-0.5 MG/3 ML Neb Soln INH SCH ×4 (07:09→20:11)
[2020-06-13] MEDS: Potassium Chloride 20 MEQ Tab.ER PO SCH ×2 (08:35→16:38)
[2020-06-13] MEDS ORDERED: Furosemide 20 MG/2 ML VIAL IVPUSH ONE (09:00)
[2020-06-13] MEDS: Lisinopril 2.5 MG Tab PO SCH (09:05)
[2020-06-13] MEDS: Docusate Sodium 100 MG Cap PO SCH ×3 (09:08→20:11)
[2020-06-13] MEDS: Metoprolol Succinate 25 MG Tab.ER PO SCH (09:08)
--- NOTE | 2020-06-13 09:09 | CR ---
CHEST: Portable 06/13/2020 at 4:30 AM CLINICAL HISTORY:Right thoracotomy COMPARISON:06/12/2020 FINDINGS: Patient is status post right thoracotomy. 2 right chest tubes are in place. There is linear density near the apex which is felt to be skinfold. Right infrahilar airspace disease persists para half impression: Right chest tubes remain in place Persistent right infrahilar airspace disease similar to prior study CHEST: Portable 06/13/2012 at 6:11 AM CLINICAL HISTORY:Chest tubes removed COMPARISON:Earlier same day FINDINGS: 2 right chest tubes been removed.. There is no significant pneumothorax. There is persistent right infrahilar density similar to prior study. Impression: Right chest tubes removed No pneumothorax Persistent right infrahilar airspace disease Upright two-view chest recommended when patient's condition allows.
--- NOTE | 2020-06-13 09:18 | PCM.CONSN ---
- General Info Date of Service: 06/13/20 Subjective Update: There were no acute events overnight. No significant difficulties with agitation and he did not require any Haldol. His pain has been well controlled. He has been on room air. He has been up and walking to the bathroom and back. Chest tubes were removed without incident. Functional Status: Reports: Pain Controlled, Tolerating Diet - Review of Systems General: Denies: Fever Pulmonary: Reports: Cough (mild ) - Patient Data Vitals - Most Recent: Last Vital Signs Temp 35.9 C L 06/13/20 07:29 Pulse 88 06/13/20 09:08 Resp 14 06/13/20 07:29 BP 119/66 06/13/20 09:08 Pulse Ox 95 06/13/20 07:29 Weight - Most Recent: 57.153 kg I&O - Last 24 Hours: Intake & Output 06/12/20 06/13/20 06/13/20 22:59 06:59 14:59 Intake Total 440 Output Total 80 Balance 360 Lab Results Last 24 Hours: Laboratory Results - last 24 hr 06/13/20 06/13/20 Range/Units 04:18 04:18 WBC 59.5 H* (4.5-11.0) K/uL RBC 3.96 L (4.30-5.90) M/uL Hgb 11.1 L (12.0-15.0) g/dL Hct 36.9 L (40.0-54.0) % MCV 93 (80-98) fL MCH 28 (27-31) pg MCHC 30 L (32-36) % Plt Count 326 (150-400) K/uL Sodium 141 (140-148) mmol/L Potassium 4.2 (3.6-5.2) mmol/L Chloride 103 (100-108) mmol/L Carbon Dioxide 28 (21-32) mmol/L Anion Gap 9.8 (5.0-14.0) mmol/L BUN 36 H (7-18) mg/dL Creatinine 1.2 (0.8-1.3) mg/dL Est Cr Clr Drug Dosing 39.69 mL/min Estimated GFR (MDRD) 58 L (>60) Glucose 88 (74-106) mg/dL Calcium 8.3 L (8.5-10.1) mg/dL Phosphorus 3.7 (2.5-4.9) mg/dL Magnesium 2.1 (1.8-2.4) mg/dL Total Bilirubin 0.7 (0.2-1.0) mg/dL AST 38 H (15-37) U/L ALT 30 (12-78) U/L Alkaline Phosphatase 87 (46-116) U/L NT-Pro-B Natriuret Pep 38902 H (5-450) pg/mL Total Protein 6.0 L (6.4-8.2) g/dL Albumin 2.3 L (3.4-5.0) g/dL Globulin 3.7 H (2.3-3.5) g/dL Albumin/Globulin Ratio 0.6 L (1.2-2.2) Med Orders - Current: Current Medications Acetaminophen (Tylenol Extra Strength) 1,000 mg PO Q6H [facility] Last Admin: 06/13/20 09:09 Dose: 1,000 mg Documented by: Albuterol/Ipratropium (Duoneb 3.0-0.5 Mg/3 Ml) 3 ml INH QIDRT [facility] Last Admin: 06/13/20 07:09 Dose: 3 ml Documented by: Albuterol/Ipratropium (Duoneb 3.0-0.5 Mg/3 Ml) 3 ml INH ASDIRECTED PRN PRN Reason: BREATHING Docusate Sodium (Colace) 100 mg PO BID [facility] Last Admin: 06/13/20 09:08 Dose: 100 mg Documented by: Haloperidol Lactate (Haldol) 2.5 mg IVPUSH Q2H PRN PRN Reason: Agitation Last Admin: 06/11/20 02:24 Dose: 2.5 mg Documented by: Hydroxyzine HCl (Vistaril) 100 mg IM Q4H PRN PRN Reason: pain Last Admin: 06/11/20 03:09 Dose: 100 mg Documented by: Potassium Chloride/Dextrose/Sod Cl (D5 1/2 Ns W/ 20 Meq/L Kcl) 1,000 mls @ 60 mls/hr IV ASDIRECTED [facility] Last Admin: 06/12/20 00:17 Dose: 60 mls/hr Documented by: Lisinopril (Prinivil) 2.5 mg PO DAILY [facility] Last Admin: 06/13/20 09:05 Dose: 2.5 mg Documented by: Melatonin (Melatonin) 9 mg PO BEDTIME [facility] Last Admin: 06/12/20 21:18 Dose: 9 mg Documented by: Metoprolol Succinate (Toprol Xl) 25 mg PO DAILY [facility] Last Admin: 06/13/20 09:08 Dose: 25 mg Documented by: Nitroglycerin (Nitrostat) 0.4 mg SL ASDIRECTED PRN PRN Reason: Chest Pain Ondansetron HCl (Zofran) 4 mg IVPUSH Q4H PRN PRN Reason: Nausea/Vomiting Last Admin: 06/07/20 00:46 Dose: 4 mg Documented by: Pantoprazole Sodium (Protonix) 40 mg PO Q24H [facility] Last Admin: 06/12/20 16:36 Dose: 40 mg Documented by: Potassium Chloride (Klor-Con M20) [facility] Stop: 06/13/20 17:01 Last Admin: 06/13/20 08:35 Dose: 20 meq Documented by: Sodium Chloride (Saline Flush) 10 ml IV ASDIRECTED PRN PRN Reason: LINE MAINTENCE Tamsulosin HCl (Flomax) 0.4 mg PO BEDTIME [facility] Last Admin: 06/12/20 21:18 Dose: 0.4 mg Documented by: Temazepam (Restoril) 15 mg PO BEDTIME PRN PRN Reason: SLEEP Discontinued Medications Acetaminophen (Tylenol Extra Strength) 1,000 mg PO ONETIME ONE Stop: 06/05/20 09:01 Last Admin: 06/05/20 09:17 Dose: 1,000 mg Documented by: Albuterol (Proventil Neb Soln) 2.5 mg NEB ONETIME ONE Stop: 06/05/20 06:28 Last Admin: 06/05/20 08:00 Dose: 2.5 mg Documented by: Bisacodyl (Dulcolax) 10 mg PO BID [facility] Last Admin: 06/08/20 20:10 Dose: 10 mg Documented by: Bupivacaine HCl/Epinephrine Bitart (Marcaine 0.5%/Epinephrine 1:200,000) Confirm Administered Dose 50 ml .ROUTE .STK-MED ONE Stop: 06/05/20 06:56 Last Admin: 06/05/20 14:00 Dose: 20 ml Documented by: Dexamethasone (Dexamethasone) Confirm Administered Dose 4 mg .ROUTE .STK-MED ONE Stop: 06/05/20 08:36 Diphenhydramine HCl (Benadryl) 25 mg IVPUSH Q6H PRN PRN Reason: ITCHING Divalproex Sodium (Divalproex Sodium) 250 mg PO BID [facility] Last Admin: 06/11/20 21:02 Dose: 250 mg Documented by: Divalproex Sodium (Depakote Sprinkle) 125 mg PO BID [facility] Ephedrine Sulfate (Ephedrine Sulfate) Confirm Administered Dose 50 mg .ROUTE .STK-MED ONE Stop: 06/05/20 08:34 Ephedrine Sulfate (Ephedrine Sulfate) Confirm Administered Dose 50 mg .ROUTE .STK-MED ONE Stop: 06/05/20 12:54 Fentanyl (Sublimaze) Confirm Administered Dose 250 mcg .ROUTE .STK-MED ONE Stop: 06/05/20 08:36 Fentanyl Citrate (Fentanyl In Ns 20 Mcg/Ml 30 Ml [employer]) 0 mcg IV ASDIRECTED PRN; Protocol PRN Reason: Pain Last Admin: 06/07/20 09:11 Dose: 600 mcg Documented by: Furosemide (Lasix) 20 mg IVPUSH ONETIME ONE Stop: 06/07/20 06:31 Last Admin: 06/07/20 07:16 Dose: 20 mg Documented by: Furosemide (Lasix) 20 mg IVPUSH ONETIME ONE Stop: 06/08/20 06:29 Last Admin: 06/08/20 06:39 Dose: 20 mg Documented by: Furosemide (Lasix) 20 mg IVPUSH ONETIME ONE Stop: 06/08/20 12:01 Last Admin: 06/08/20 11:22 Dose: 20 mg Documented by: Furosemide (Lasix) 40 mg IV ONETIME ONE Stop: 06/09/20 08:01 Last Admin: 06/09/20 07:57 Dose: 40 mg Documented by: Furosemide (Lasix) 20 mg IVPUSH ONETIME ONE Stop: 06/09/20 14:01 Last Admin: 06/09/20 13:58 Dose: 20 mg Documented by: Furosemide (Lasix) 20 mg IV Q6H [facility] Stop: 06/10/20 14:01 Last Admin: 06/10/20 13:55 Dose: 20 mg Documented by: Furosemide (Lasix) 20 mg IV ONETIME ONE Stop: 06/12/20 08:31 Last Admin: 06/12/20 09:35 Dose: 20 mg Documented by: Furosemide (Lasix) 20 mg IVPUSH ONETIME ONE Stop: 06/13/20 09:01 Last Admin: 06/13/20 09:09 Dose: 20 mg Documented by: Glycopyrrolate (Robinul) Confirm Administered Dose 1 mg .ROUTE .STK-MED ONE Stop: 06/05/20 08:36 Haloperidol Lactate (Haldol) 2.5 mg IVPUSH Q6H PRN PRN Reason: Agitation Last Admin: 06/10/20 07:11 Dose: 2.5 mg Documented by: Haloperidol Lactate (Haldol) 2.5 mg IVPUSH Q4H PRN PRN Reason: Agitation Last Admin: 06/10/20 19:12 Dose: 2.5 mg Documented by: Heparin Sodium (Porcine) (Heparin Sodium) Confirm Administered Dose 5,000 units .ROUTE .STK-MED ONE Stop: 06/05/20 08:48 Cefazolin Sodium/Dextrose 2 gm (/ Premix) 50 mls @ 100 mls/hr IV ONETIME ONE Stop: 06/05/20 09:29 Last Admin: 06/05/20 11:05 Dose: 100 mls/hr Documented by: Dextrose/Lactated Ringer's (Dextrose 5%-Lactated Ringers) 1,000 mls @ 100 mls/hr IV ASDIRECTED [facility] Last Admin: 06/05/20 15:20 Dose: 100 mls/hr Documented by: Sodium Chloride (Normal Saline) Confirm Administered Dose 10 mls @ as directed .ROUTE .STK-MED ONE Stop: 06/05/20 08:34 Sodium Chloride (Normal Saline) Confirm Administered Dose 10 mls @ as directed .ROUTE .STK-MED ONE Stop: 06/05/20 08:41 Fentanyl 2,500 mcg/ Sodium (Chloride) 250 mls @ 0 mls/hr EPIDUR TITRATE [facility]; Protocol Last Titration: 06/07/20 05:46 Dose: 0 mls/hr Documented by: Lidocaine HCl (Xylocaine-Mpf 1%) Confirm Administered Dose 2 mls @ as directed .ROUTE .STK-MED ONE Stop: 06/05/20 11:37 Sodium Chloride (Normal Saline) Confirm Administered Dose 500 mls @ as directed .ROUTE .STK-MED ONE Stop: 06/05/20 12:57 Sodium Chloride (Normal Saline) Confirm Administered Dose 500 mls @ as directed .ROUTE .STK-MED ONE Stop: 06/05/20 12:57 Dextrose/Lactated Ringer's (Dextrose 5%-Lactated Ringers) 1,000 mls @ 150 mls/hr IV ASDIRECTED [facility] Last Admin: 06/06/20 03:00 Dose: 150 mls/hr Documented by: Cefazolin Sodium/Dextrose 2 gm (/ Premix) 50 mls @ 100 mls/hr IV Q8H [facility] Stop: 06/07/20 02:29 Last Admin: 06/07/20 01:41 Dose: 100 mls/hr Documented by: Dextrose/Lactated Ringer's (Dextrose 5%-Lactated Ringers) 1,000 mls @ 100 mls/hr IV ASDIRECTED [facility] Last Admin: 06/08/20 02:23 Dose: 100 mls/hr Documented by: Lactated Ringer's (Ringers, Lactated) 500 mls @ 500 mls/hr IV ONETIME ONE Stop: 06/07/20 03:14 Last Admin: 06/07/20 02:10 Dose: 500 mls/hr Documented by: Lactated Ringer's (Ringers, Lactated) 500 mls @ 0 mls/hr IV ASDIRECTED [facility] Lactated Ringer's (Ringers, Lactated) 500 mls @ 500 mls/hr IV ONETIME ONE Stop: 06/07/20 06:44 Last Admin: 06/07/20 05:45 Dose: 500 mls/hr Documented by: Magnesium Sulfate 2 gm/ Premix 50 mls @ 25 mls/hr IV Q6H [facility] Stop: 06/09/20 03:59 Last Admin: 06/09/20 02:01 Dose: 25 mls/hr Documented by: Dextrose/Lactated Ringer's (Dextrose 5%-Lactated Ringers) 1,000 mls @ 60 mls/hr IV ASDIRECTED [facility] Last Admin: 06/08/20 21:35 Dose: 60 mls/hr Documented by: Potassium Phosphate 15 mmol/ (Premix) 250 mls @ 85 mls/hr IV Q3H [facility] Stop: 06/08/20 18:57 Last Admin: 06/08/20 17:50 Dose: 85 mls/hr Documented by: Dextrose/Lactated Ringer's (Dextrose 5%-Lactated Ringers) 1,000 mls @ 0 mls/hr IV ASDIRECTED [facility] Potassium Chloride 20 meq/Lidocaine HCl 2 ml/ Sodium Chloride 112 mls @ 56 mls/hr IV Q2H [facility] Stop: 06/09/20 13:59 Last Admin: 06/09/20 11:56 Dose: 56 mls/hr Documented by: Ibuprofen (Motrin) 600 mg PO Q6H [facility] Last Admin: 06/10/20 02:45 Dose: 600 mg Documented by: Ibuprofen (Motrin) 400 mg PO Q8H [facility] Last Admin: 06/11/20 03:02 Dose: Not Given Documented by: Ketorolac Tromethamine (Toradol) 30 mg IVPUSH ONETIME ONE Stop: 06/08/20 08:01 Last Admin: 06/08/20 07:53 Dose: 30 mg Documented by: Lidocaine HCl (Xylocaine 2% Viscous) Confirm Administered Dose 15 ml .ROUTE .STK-MED ONE Stop: 06/05/20 06:55 Last Admin: 06/05/20 11:50 Dose: 15 ml Documented by: Lidocaine HCl (Xylocaine 4% Top Soln) Confirm Administered Dose 50 ml .ROUTE .STK-MED ONE Stop: 06/05/20 06:56 Last Admin: 06/05/20 11:50 Dose: 50 ml Documented by: Meropenem (Merrem) Confirm Administered Dose 500 mg .ROUTE .STK-MED ONE Stop: 06/05/20 13:27 Last Admin: 06/05/20 13:12 Dose: 500 mg Documented by: Metoprolol Succinate (Toprol Xl) 25 mg PO ONETIME ONE Stop: 06/05/20 08:31 Last Admin: 06/05/20 08:51 Dose: 25 mg Documented by: Naloxone HCl (Narcan) 0.1 mg IVPUSH Q5M PRN PRN Reason: RESP RATE LESS THAN 6/MINUTE Naloxone HCl (Narcan) 0.4 mg IV ASDIRECTED PRN PRN Reason: ITCHING Last Admin: 06/06/20 20:26 Dose: 0.4 mg Documented by: Naloxone HCl (Narcan) 0.1 mg IV ASDIRECTED PRN PRN Reason: decreased respiratory rate Neostigmine Methylsulfate (Neostigmine) Confirm Administered Dose 5 mg .ROUTE .STK-MED ONE Stop: 06/05/20 08:36 Ondansetron HCl (Zofran) Confirm Administered Dose 4 mg .ROUTE .STK-MED ONE Stop: 06/05/20 08:36 Pantoprazole Sodium (Protonix Iv) 40 mg IVPUSH Q24H [facility] Last Admin: 06/09/20 15:42 Dose: 40 mg Documented by: Potassium Chloride (Klor-Con M20) 40 meq PO ONETIME ONE Stop: 06/09/20 08:01 Last Admin: 06/09/20 07:59 Dose: 40 meq Documented by: Propofol (Diprivan 20 Ml) Confirm Administered Dose 200 mg .ROUTE .STK-MED ONE Stop: 06/05/20 08:36 Rocuronium [place] (Zemuron) Confirm Administered Dose 50 mg .ROUTE .STK-MED ONE Stop: 06/05/20 08:36 Succinylcholine Chloride (Quelicin) Confirm Administered Dose 200 mg .ROUTE .STK-MED ONE Stop: 06/05/20 08:36 - Exam Quality Assessment: No: Supplemental Oxygen General: Alert, Oriented, Cooperative, No Acute Distress Lungs: Normal Respiratory Effort Cardiovascular: Regular Rate, Regular Rhythm GI/Abdominal Exam: Soft, No Distention Extremities: No Pedal Edema Psy/Mental Status: Alert, Normal Affect Sepsis Event Note - Evaluation Sepsis Screening Result: No Definite Risk - Focused Exam Vital Signs: Vital Signs Temp Pulse Pulse Resp BP BP Pulse Ox 06/13/20 09:08 88 119/66 06/13/20 09:05 119/66 06/13/20 07:29 35.9 C L 92 14 95 06/13/20 07:09 96 06/13/20 06:00 93 12 122/62 95 06/13/20 04:00 35.7 C L 20 144/76 H 95 06/13/20 02:00 19 132/78 95 06/13/20 00:00 35.8 C L 22 H 122/73 93 L 06/12/20 22:00 20 124/66 96 Consult PN Assessment/Plan Procedures: Procedures ASSAY OF CK (CPK) (02/08/15) ASSAY OF CREATININE (07/09/17) ASSAY OF MAGNESIUM (06/06/18) ASSAY OF SERUM POTASSIUM (06/06/18) ASSAY OF TROPONIN QUANT (02/08/15) ASSAY OF URINE POTASSIUM (06/06/18) BLOOD TYPING SEROLOGIC ABO (05/31/20) BLOOD TYPING SEROLOGIC RH(D) (05/31/20) BRONCHOSCOPY W/BIOPSY(S) (11/03/14) CARDIOVASCULAR STRESS TEST (04/09/19) CHEST X-RAY 1 VIEW FRONTAL (02/08/15) COMPLETE CBC AUTOMATED (06/06/18) COMPLETE CBC W/AUTO DIFF WBC (06/06/18) COMPREHEN METABOLIC PANEL (06/06/18) CT THORAX W/DYE (11/13/17) CT THORAX W/O DYE (05/31/20) CULTURE OTHR SPECIMN AEROBIC (11/03/14) DX BRONCHOSCOPE/BRUSH (11/03/14) DX BRONCHOSCOPE/LAVAGE (11/03/14) ELECTROCARDIOGRAM TRACING (06/06/18) EMERGENCY DEPT VISIT (06/06/18) EMERGENCY DEPT VISIT (06/02/18) EMERGENCY DEPT VISIT (06/02/18) EMERGENCY DEPT VISIT (01/25/16) EMERGENCY DEPT VISIT (02/08/15) EMERGENCY DEPT VISIT (10/15/14) EVALUATION OF WHEEZING (11/18/14) EXTRACRANIAL BILAT STUDY (09/15/19) FUNGUS ISOLATION CULTURE (11/03/14) HT MUSCLE IMAGE SPECT MULT (04/09/19) INSERT TEMP BLADDER CATH (01/25/16) METABOLIC PANEL TOTAL CA (06/06/18) MYCOBACTERIA CULTURE (11/03/14) RBC ANTIBODY SCREEN (05/31/20) ROUTINE VENIPUNCTURE (06/06/18) SMEAR FLUORESCENT/ACID STAI (11/03/14) SMEAR GRAM STAIN (11/03/14) SPECIMEN INFECT AGNT CONCNTJ (11/03/14) THER/PROPH/DIAG IV INF INIT (06/06/18) TISSUE EXAM FOR FUNGI (11/03/14) TTE W/DOPPLER COMPLETE (09/15/19) TX/PRO/DX INJ NEW DRUG ADDON (06/06/18) URINALYSIS AUTO W/SCOPE (01/25/16) URINE CULTURE/COLONY COUNT (01/25/16) US EXAM ABDO BACK WALL COMP (12/18/15) Problem List Initiated/Reviewed/Updated: Yes Plan: ASSESSMENT AND RECOMMENDATIONS HYPERACTIVE DELIRIUM-seems to be back to baseline at this time. More alert and interactive after the Depakote was stopped. No significant behavior issues. -Should not need further medications based on how well he is doing at this time -Melatonin 9 mg at bedtime STATUS POST PARTIAL RIGHT LUNG RESECTION-pain very well controlled and strength is improving. Plan is for discharge tomorrow as long as there are no acute issues overnight. -Postoperative care and management per Dr. Kamlesh Mora MD
[2020-06-13] MEDS: Haloperidol Lactate 5 MG/ML SDV IVPUSH PRN ×5 (11:04→23:23)
[2020-06-13] MEDS: Divalproex Sodium Delayed-Release 250 MG Tab.CR PO SCH (11:55)
[2020-06-13] MEDS: Pantoprazole 40 MG Tab.CR PO SCH (15:39)
[2020-06-13] MEDS ORDERED: Divalproex Sodium Delayed-Release 125 MG Cap.Sprink PO ONE (18:00)
[2020-06-13] MEDS: Tamsulosin 0.4 MG Cap.ER PO SCH (20:10)
[2020-06-13] MEDS: Melatonin 3 MG Tab PO SCH (20:11)
[2020-06-13] MEDS ORDERED: Temazepam 15 MG Cap PO SCH (21:00)
[2020-06-14] MEDS: Haloperidol Lactate 5 MG/ML SDV IVPUSH PRN (01:39)
[2020-06-14] MEDS: Acetaminophen 500 MG Tab PO SCH ×2 (05:54→09:44)
[2020-06-14] MEDS: Albuterol/Ipratropium 3.0-0.5 MG/3 ML Neb Soln INH SCH (07:21)
[2020-06-14 08:03] VITALS: PULSE 82
[2020-06-14] MEDS: Metoprolol Succinate 25 MG Tab.ER PO SCH (09:00)
[2020-06-14] MEDS: Lisinopril 2.5 MG Tab PO SCH (09:00)
[2020-06-14 09:38] VITALS: BP 125/56
[2020-06-14] MEDS: Docusate Sodium 100 MG Cap PO SCH (09:44)
--- NOTE | 2020-06-14 10:14 | CR ---
CHEST: 2 view CLINICAL HISTORY:Chest tube removal COMPARISON:06/13/2020 FINDINGS: Patient is status post right thoracotomy. There is no recurrence of pneumothorax. There is improved aeration in the right infrahilar region.. Impression: No recurrent pneumothorax
--- NOTE | 2020-06-14 10:57 | OR ---
DATE OF PROCEDURE: 06/05/2020 SURGEON: Kali Whitlock MD PREOPERATIVE DIAGNOSIS: Enlarging mass, superior segment, right lower lobe. POSTOPERATIVE DIAGNOSIS: Non-small cell carcinoma, superior segment, right lower lobe. OPERATIVE PROCEDURES: 1. Flexible bronchoscopy (92342). 2. Diagnostic thoracoscopy (65059). 3. Right lateral thoracotomy with: a. Superior segmentectomy of right lower lobe (22778). b. Regional lymph node sampling (38595). ANESTHESIA: General plus epidural. SPLUNK ARCHITECT: Maribel Yeager PA-C INDICATIONS FOR PROCEDURE: This is an 80-year-old with a history of adenocarcinoma involving the left upper lobe which was resected 5 years ago, now presents with some gradual enlargement of a mass in the superior segment of right lower lobe. In the recent past, this has had an immediate uptake level on PET scan. The overall picture is highly suggestive of a somewhat slow growing malignancy. After discussion of the treatment options with the patient and , they wished to proceed with the resection. Pulmonary function tests had been obtained earlier today which were somewhat better than expected with an FEV1 being slightly over 100% of the expected level. However, full right lower lobe lobectomy, we would be removing a roughly one third area of the remaining lung, and particularly on the left side, there is relatively poor vasculature present and the right lower lobe (probably) obviously is receiving a large portion of the perfusion, and the patient would unlikely tolerate a full lobectomy. We will therefore plan to proceed with a superior segmentectomy, along with lymph node sampling, and will undergo pulmonary bronchoscopy to rule out any more proximal disease. Initial diagnostic thoracoscopy to make sure there is not some contraindication for resection, such as development of pleural metastasis. Then, if none are seen, could go to a lateral thoracotomy to do a superior segmentectomy safely, containing the small vessels and bronchi in a clean and precise manner, at least in my hands, would require a thoracotomy. Potential risks of the procedure including bleeding, infection, possibility of marked shortness of breath or cardiac problems postoperatively, along with the possibility of cardiopulmonary, septic, or hemorrhagic complications leading to were discussed with the patient and , and they wished to proceed. DETAILS OF PROCEDURE: The patient was taken to the operating room, and after epidural catheter was then placed, general anesthetic was induced. Initially, a standard endotracheal tube was placed and, through this, bronchoscopy performed. No significant findings were noted. The stump of the left upper lobe showed no signs of recurrence and remainder of the tracheobronchial tree was otherwise unremarkable. Cultures were obtained to provide a baseline of the faby in the lower respiratory tract. Marcelino catheter had been inserted, and then the right chest and surrounding areas were then prepped and draped. In the 10th interspace, in the lateral axillary line, incision was made and the pleural space then entered. The patient at point was placed on one-lung ventilation, which he tolerated surprisingly well and the right lung gradually decreased in volume. Inspection showed no areas of pleural fluid and no signs of metastatic disease in the pleura or elsewhere on examination. Given this, the thoracoscope was then withdrawn. A right lateral thoracotomy going through the 5th interspace was then undertaken, continued down through the skin, subcutaneous tissue, musculature, and pleura, which was then spread. A general exploration was then undertaken. The patient's mediastinal lymph nodes were not at any point firm or enlarged. The mass in the posterior aspect of the superior segment of the right lower lobe was vaguely palpable but was identifiable by palpation. At this point, the fissure between the superior segment of lower lobe and the upper lobe was divided with the NATALIA stapler and one could see an actual line defining the junction of the superior segment and basilar segments, and this was then divided down to the level of the hilum with NATALIA rebecca as well. The pleura both anterior and posterior to the takeoff of the superior segment was then divided and sequentially the small veins coming off of the inferior pulmonary vein to the superior segment were divided with NATALIA rebecca. The arterial branch coming into the superior segment was then isolated and divided with rebecca as well. This then allowed a division of the bronchus flush with the takeoff of it from the bronchus going down to the basilar segments. This was with a NATALIA black load. At that point, the specimen was delivered from the field. Frozen section of this was consistent with a non-small cell carcinoma and there appeared to be grossly clear margins per the consulting pathologist. At this point, the sentinel nodes for the right lower lobe were then dissected free and excised. This included subcarinal nodes and right mainstem bronchus nodes and nodes of the tracheobronchial angle. There did appear to be some [place] tissue taken out with the lung specimen as well, which would be separately reported. The node dissection was accomplished primarily with electrocautery and supplied as well. At this point, no further problems were noted. The area of dissection at the hilum of the superior segment was then covered with fibrin sealant. The patient was then placed on two- lung ventilation with good inflation of the entire remaining right lung. No air leaks were evident. A 32-Croatian straight and a 36-Croatian right-angled chest tube were then placed below the incision using the camera port for thoracostomy at one of those sites and these were sutured to skin with some #2 Ethibond stitch. The ribs were then approximated with #2 Vicryl stitch and the musculature closed in 2 layers with 0 Vicryl stitch, subdermal tissues with 4-0 Vicryl, and the skin with rebecca. The patient was taken to the recovery room in satisfactory condition. He was extubated and showed good oxygenation. There were no evident complications. Physician assistant director of residence life, Maribel Yeager, played an essential role in assisting in this case, helping to position the patient, retract structures as needed, as well as suturing and cutting sutures when indicated. Her presence improved patient safety and decreased operative time. Kali Whitlock MD /[id number] [facility]ENTER[facility]aron
--- NOTE | 2020-06-14 11:50 | DISCH ---
FINAL DIAGNOSES: 1. Adenocarcinoma involving superior segment of right lower lobe with clean margins on resection and a negative mediastinal lymph nodes. 2. Postoperative confusion. 3. History of hypertension. 4. History of adenocarcinoma of left upper lobe status post resection (5 years ago without recurrence). 5. Chronic lymphocytic leukemia. 6. Chronic kidney disease. 7. Panlobular emphysema. 8. Ulcer of right foot. 9. Coronary artery disease. 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 11.Hyperlipidemia. 12.Prediabetes mellitus. 13.Benign prostatic hypertrophy. OPERATIVE PROCEDURES: This was done on 06/05: 1. Flexible bronchoscopy. 2. Diagnostic thoracoscopy followed by right lateral thoracotomy with: a. Superior segmentectomy of right lower lobe. b. Regional lymph node sampling. SUMMARY: This is an 80-year-old presenting with a gradually enlarging mass in the superior segment of the right lower lobe. He is 5 years status post left upper lobectomy for adenocarcinoma with no known recurrence. Because of the intermediate PET scan uptake and gradual increase in size over time, we elected then to proceed with resection of the mass. The patient is not severely short of breath at rest, but does have some mild dyspnea on exertion and a full right lower lobectomy with removal probably in the range of 1/3rd of his remaining lung, so we elected to proceed with a segmentectomy. This was done on the date of admission. The margins were clear and lymph nodes were negative for metastatic disease. There was adenocarcinoma with the greatest tumor dimension of 1.4 cm. Postoperatively, the patient required some diuresis, but otherwise from a medical standpoint did well. He did have quite a bit in the way of confusion, requiring medications including Depakote and Haldol. I think he will probably do much better once he gets home. Chest tubes were removed yesterday and the chest x-ray today looks good. He will be sent home on a regular diet with the changing the chest tube dressing sites daily. The rebecca were removed today and he will be sent home with only Tylenol 1 g q.6 hours p.r.n. pain and then melatonin 9 mg p.o. at bedtime p.r.n. sleep. Otherwise, he will be continuing his present medications. Follow up with Dr. Whitlock at [facility] on 06/21/2020. At that point, we will set him up for a Medical Oncology appointment the following week.
--- NOTE | 2020-06-14 13:54 | PN ---
DATE OF SERVICE: 06/10/2020 The patient has been afebrile with stable vital signs. He has been quite confused and is at times somewhat resistant to care. We will probably add some more frequent use of Haldol today. Otherwise, he has not received any narcotic pain medication. Chest tube output is around 160, it is fluctuating. No air leak is seen. Lungs appear to be well inflated. We will offer him some sleeping medication tonight. Otherwise, continue to maximize activity and work with pulmonary toilet. Kali Whitlock MD /[id number]
--- NOTE | 2020-06-14 14:24 | PN ---
DATE OF SERVICE: 06/12/2020 The patient has been afebrile with stable vital signs. He is much more clear this morning and cooperative. He has been taking the Depakote and has not received any Haldol for over 24 hours. The chest tube output is down to 100 mL, so we will pull those out later today. Otherwise, we will advance the diet to a regular diet encouraging increased oral intake. His labs look improved with BUN being coming down quite a bit. Creatinine is also down a little bit at 1.4. Overall, these appear to be improving. We will pull the chest tubes out later today. He may or may not be ready for discharge home tomorrow depending on his overall performance status. Kali Whitlock MD /[id number]
--- NOTE | 2020-06-14 14:33 | PN ---
DATE OF SERVICE: 06/13/2020 The patient had a burst of chest tube output yesterday morning, so we decided to leave the chest tubes in for one day. It ended up only being 80 mL in the last 24 hours, so the chest tubes will be pulled this morning. We will recheck a chest x-ray tomorrow. He is becoming progressively more lucid. We will maximize activity today. His electrolytes remain good, and the creatinine is down to 1.2. We will give him one additional dose of IV Lasix today along with some oral potassium. Likely, he will be ready for discharge home tomorrow. Kali Whitlock MD /[id number]
--- NOTE | 2020-06-15 09:54 | PN ---
DATE OF SERVICE: 06/09/2020 The patient has been afebrile with stable vital signs. O2 sats on limited oxygen are in the 98% range. Respiratory rate is 23. Chest x-ray shows lung to be well inflated. No air leak is noted. He had 200 plus out of the chest tube in the last 24 hours. The patient has been off any narcotics for around 24 hours and now is becoming much more lucid. Pain control appears to be adequate with combination of ibuprofen and Tylenol, and we will go with that. Otherwise, he did move his bowels and will begin a full liquid diet and advance that as tolerated today. His BNP continues to be quite high, and we will give him 40 of Lasix IV this morning and 20 this afternoon. Will replace his potassium for a potassium of 3.6, and we will give him 40 of KCl both IV and orally in anticipation that his potassium loss was related to the diuresis. Kali Whitlock MD /[id number]
--- NOTE | 2020-06-15 10:03 | PN ---
DATE OF SERVICE: 06/11/2020 The patient remained quite uncooperative and confused yesterday. Dr. Perez was consulted and we decided to move up the Haldol dose to more frequently and add some Depakote. This has helped and he has gotten some good sleep overnight. The plan will be to have him emerge from the Haldol this morning and see how cooperative he is and also begin to back down on that after he has gotten some good sleep. Otherwise, chest tube output is 140 mL. No air leaks are noted, and chest x-ray looks good. We will leave those in for today and possibly remove those tomorrow. Otherwise, he has not been having much in the way of oral intake. We will give him IV at 60 mL an hour as a backup at this point. BNP is now back down to his relative baseline. Labs show creatinine had crept up a little bit to 1.6 and at this point, we will get rid of the ibuprofen and just go with Tylenol only for pain to avoid renal adverse effects related to the ibuprofen. Kali Whitlock MD /[id number] MTDD
== END 2020-06-14 11:03 | disposition home or self-care (01) | DRG 121 ==
LOC: JP.SDS 07:41 → EDSTATUS 10:45 → JP.ICU 14:15
PROVIDERS: ADMIT Surgery; ATTEND Surgery
PROC: 0BBF0ZZ Excision of Right Lower Lung Lobe, Open Approach (ICD-10-PCS; principal; 2020-06-05)
PROC: 07B70ZX Excision of Thorax Lymphatic, Open Approach, Diagnostic (ICD-10-PCS; 2020-06-05)
PROC: 0BJ08ZZ Inspection of Tracheobronchial Tree, Via Natural or Artificial Opening Endoscopic (ICD-10-PCS; 2020-06-05)
DX: C34.31 Malignant neoplasm of lower lobe, right bronchus or lung (principal); C91.10 Chronic lymphocytic leukemia of B-cell type not having achieved remission; J43.1 Panlobular emphysema; F03.90 Unspecified dementia, unspecified severity, without behavioral disturbance, psychotic disturbance, mood disturbance, and anxiety; G93.89 Other specified disorders of brain; J95.811 Postprocedural pneumothorax; L97.519 Non-pressure chronic ulcer of other part of right foot with unspecified severity; E78.5 Hyperlipidemia, unspecified; I13.0 Hypertensive heart and chronic kidney disease with heart failure and stage 1 through stage 4 chronic kidney disease, or unspecified chronic kidney disease; I25.10 Atherosclerotic heart disease of native coronary artery without angina pectoris; I50.9 Heart failure, unspecified; N40.0 Benign prostatic hyperplasia without lower urinary tract symptoms; N18.9 Chronic kidney disease, unspecified; R41.0 Disorientation, unspecified; G89.29 Other chronic pain; M54.9 Dorsalgia, unspecified; Z96.659 Presence of unspecified artificial knee joint; E78.00 Pure hypercholesterolemia, unspecified; Z96.649 Presence of unspecified artificial hip joint; Z95.0 Presence of cardiac pacemaker; Z79.82 Long term (current) use of aspirin; Z79.899 Other long term (current) drug therapy; Z87.891 Personal history of nicotine dependence
CPT/HCPCS: 36415; 36600; 71045; 71045-26; 71046; 71046-26; 80048; 80053; 82803; 83735; 83880; 84100; 85027; 86850; 86900; 86901; 86920; 86922; 88305; 88307; 88309; 88331; 88332; 93005; 93010; 94060; 94640; A9270-GY; C9113; J0330; J0690; J1100; J1630; J1644; J1885; J1940; J2001; J2185; J2310; J2405; J2704; J2710; J3010; J3410; J3475; J3480; J3490; J7040; J7050; J7121; J7620-GY

== ENCOUNTER 2020-09-13 13:01 | Emergency (ER) | payer BC, MEDICARE ==
[2020-09-13] MEDS ORDERED: Acetaminophen 325 MG Tab PO PRN (13:42)
[2020-09-13] MEDS ORDERED: Albuterol/Ipratropium 4 GM Inhalation Spray INH PRN (13:42)
--- NOTE | 2020-09-13 13:45 | EDM.PDOC ---
ED HPI GENERAL MEDICAL PROBLEM - General Chief Complaint: General Stated Complaint: COVID POSITIVE Time Seen by Provider: 09/13/20 13:34 Source of Information: Reports: Patient, RN Notes Reviewed History Limitations: Reports: No Limitations - History of Present Illness INITIAL COMMENTS - FREE TEXT/NARRATIVE: 80-year-old gentleman presents emergency department today complaint of shortness of breath, he was recently diagnosed COVID-19 on August 31 he is approximately 13 days out states has been doing well however the last couple days more short of breath than usual he does have a history of lung cancer status post resection no fever Chest Pain Score (Numeric/FACES): 7 - Related Data Allergies Allergy/AdvReac Type Severity Reaction Status Date / Time No Known Allergies Allergy Verified 09/13/20 13:14 Home Meds: Home Meds Metoprolol Succinate [Toprol XL] 25 tab PO DAILY 08/21/18 [History] lisinopriL [Zestril] 2.5 mg PO DAILY 08/21/18 [History] Albuterol Sulfate 3 ml INH ASDIRECTED PRN 03/25/19 [History] Cholecalciferol (Vitamin D3) [Vitamin D3] 2,000 unit PO DAILY 03/25/19 [History] Simvastatin [Zocor] 40 mg PO BEDTIME 04/09/19 [History] Albuterol [Proventil Neb Soln] 2.5 mg .XX Q4HR PRN 06/02/20 [History] Aspirin [Adult Low Dose Aspirin EC] 81 mg PO DAILY 06/02/20 [History] Nitroglycerin 0.3 mg SL ASDIRECTED 06/02/20 [History] Rosuvastatin [Crestor] 10 mg PO DAILY 06/02/20 [History] Past Medical History HEENT History: Reports: Cataract Cardiovascular History: Reports: High Cholesterol, Hypertension, Pacemaker Respiratory History: Reports: COPD, SOB Other Respiratory History: left lung mass removed 5-10 years ago, patient unsure Genitourinary History: Reports: BPH, Prostate Disorder Musculoskeletal History: Reports: Amputation Oncologic (Cancer) History: Reports: Lung Other Oncologic History: left lung malignancy - Infectious Disease History Infectious Disease History: Reports: Chicken Pox, Measles - Past Surgical History HEENT Surgical History: Reports: Cataract Surgery Cardiovascular Surgical History: Reports: Coronary Artery Bypass, Percutaneous Transluminal Angioplasty Respiratory Surgical History: Reports: Lung Resection, Other (See Below) Other Respiratory Surgeries/Procedures: Bronch GI Surgical History: Reports: Colonoscopy Male Surgical History: Reports: TURP-Transurethral Resection of Prostate Musculoskeletal Surgical History: Reports: Hip Replacement, Knee Replacement Other Musculoskeletal Surgeries/Procedures:: right foot-toe amputation Oncologic Surgical History: Reports: None Social & Family History - Family History Family Medical History: No Pertinent Family History - Tobacco Use Tobacco Use Status *Q: Never Tobacco User - Caffeine Use Caffeine Use: Reports: Coffee Caffeine Use Comment: 6 cups/day - Recreational Drug Use Recreational Drug Use: No ED ROS GENERAL - Review of Systems Review Of Systems: See Below Constitutional: Reports: Weakness, Fatigue. Denies: Fever, Chills HEENT: Reports: No Symptoms Respiratory: Reports: Shortness of Breath Cardiovascular: Reports: Dyspnea on Exertion GI/Abdominal: Reports: No Symptoms ED EXAM, GENERAL - Physical Exam Exam: See Below Exam Limited By: No Limitations General Appearance: Alert, WD/WN, No Apparent Distress Respiratory/Chest: No Respiratory Distress, No Accessory Muscle Use, Decreased Breath Sounds Cardiovascular: Regular Rate, Rhythm, No Murmur GI/Abdominal: Soft, Non-Tender Course - Vital Signs Last Recorded V/S: Last Vital Signs Temp 96.5 F L 09/13/20 13:05 Pulse 102 H 09/13/20 15:11 Resp 32 H 09/13/20 13:21 BP 105/78 09/13/20 15:11 Pulse Ox 97 09/13/20 15:11 - Orders/Labs/Meds Orders: Active Orders 24 hr Category Date Time Status Nurse Communication: Isolation [RC] ASDIRECTED Care 09/13/20 13:43 Active RT Post Treatment Assessment [RC] Click to Edit Care 09/13/20 13:42 Active LACTIC ACID [CHEM] Stat Lab 09/13/20 14:01 Received Acetaminophen [TylenoL] Med 09/13/20 13:42 Active 650 mg PO Q4H PRN Albuterol/Ipratropium [Combivent Respimat] Med 09/13/20 13:42 Active 1 gm INH Q4H PRN Isolation [COMM] Stat Oth 09/13/20 13:42 Ordered Medication Orders Acetaminophen (Tylenol) 650 mg PO Q4H PRN PRN Reason: Fever Greater Than 101 Last Admin: 09/13/20 14:46 Dose: 650 mg Documented by: PREILOR Albuterol/Ipratropium (Combivent Respimat) 1 gm INH Q4H PRN PRN Reason: Dyspnea Last Admin: 09/13/20 14:46 Dose: 1 dose Documented by: PREILOR Labs: Laboratory Tests 09/13/20 09/13/20 09/13/20 Range/Units 13:42 14:01 14:01 WBC 53.9 H* (4.5-11.0) K/uL RBC 5.07 (4.30-5.90) M/uL Hgb 13.8 D (12.0-15.0) g/dL Hct 45.6 (40.0-54.0) % MCV 90 (80-98) fL MCH 27 (27-31) pg MCHC 30 L (32-36) % Plt Count 326 (150-400) K/uL Add Manual Diff Yes Neutrophils % (Manual) 23 L (36-66) % Lymphocytes % (Manual) 72 H (24-44) % Monocytes % (Manual) 5 (2-6) % Polychromasia PT (9.5-12.0) sec INR (0.80-1.20) D-Dimer, Quantitative 1785.54 H (0.0-500.0) ng/mL Sodium (140-148) mmol/L Potassium (3.6-5.2) mmol/L Chloride (100-108) mmol/L Carbon Dioxide (21-32) mmol/L Anion Gap (5.0-14.0) mmol/L BUN (7-18) mg/dL Creatinine (0.8-1.3) mg/dL Est Cr Clr Drug Dosing mL/min Estimated GFR (MDRD) (>60) Glucose (74-106) mg/dL Calcium (8.5-10.1) mg/dL Ferritin 499 H (8-388) ng/ml Total Bilirubin (0.2-1.0) mg/dL Direct Bilirubin (0.0-0.2) mg/dL Indirect Bilirubin AST (15-37) U/L ALT (12-78) U/L Alkaline Phosphatase (46-116) U/L Lactate Dehydrogenase (85-227) U/L C-Reactive Protein (0.0-0.3) mg/dL Total Protein (6.4-8.2) g/dL Albumin (3.4-5.0) g/dL Globulin (2.3-3.5) g/dL Albumin/Globulin Ratio (1.2-2.2) Procalcitonin ng/mL 09/13/20 09/13/20 09/13/20 Range/Units 14:01 14:01 14:01 WBC (4.5-11.0) K/uL RBC (4.30-5.90) M/uL Hgb (12.0-15.0) g/dL Hct (40.0-54.0) % MCV (80-98) fL MCH (27-31) pg MCHC (32-36) % Plt Count (150-400) K/uL Add Manual Diff Neutrophils % (Manual) (36-66) % Lymphocytes % (Manual) (24-44) % Monocytes % (Manual) (2-6) % Polychromasia PT 11.3 (9.5-12.0) sec INR 1.04 (0.80-1.20) D-Dimer, Quantitative (0.0-500.0) ng/mL Sodium 141 (140-148) mmol/L Potassium 4.6 (3.6-5.2) mmol/L Chloride 105 (100-108) mmol/L Carbon Dioxide 23 (21-32) mmol/L Anion Gap 12.7 (5.0-14.0) mmol/L BUN 65 H (7-18) mg/dL Creatinine 1.7 H (0.8-1.3) mg/dL Est Cr Clr Drug Dosing 26.68 mL/min Estimated GFR (MDRD) 39 L (>60) Glucose 145 H (74-106) mg/dL Calcium 9.3 (8.5-10.1) mg/dL Ferritin (8-388) ng/ml Total Bilirubin 0.4 (0.2-1.0) mg/dL Direct Bilirubin 0.13 (0.0-0.2) mg/dL Indirect Bilirubin 0.27 AST 9 L D (15-37) U/L ALT 16 (12-78) U/L Alkaline Phosphatase 85 (46-116) U/L Lactate Dehydrogenase 167 (85-227) U/L C-Reactive Protein 6.48 H (0.0-0.3) mg/dL Total Protein 7.2 (6.4-8.2) g/dL Albumin 3.3 L (3.4-5.0) g/dL Globulin 3.9 H (2.3-3.5) g/dL Albumin/Globulin Ratio 0.9 L (1.2-2.2) Procalcitonin 0.07 ng/mL Meds: Medications Generic Name Dose Route Start Last Admin Trade Name Freq PRN Reason Stop Dose Admin Acetaminophen 650 mg 09/13/20 13:42 09/13/20 14:46 Tylenol PO 650 mg Q4H PRN Administration Fever Greater Than 101 Albuterol/Ipratropium 1 gm 09/13/20 13:42 09/13/20 14:46 Combivent Respimat INH 1 dose Q4H PRN Administration Dyspnea Departure - Departure Time of Disposition: 15:21 Disposition: Home, Self-Care 01 Condition: Fair Clinical Impression: Weakness - Discharge Information Referrals: PCP,None [Primary Care Provider] - Forms: ED Department Discharge Additional Instructions: Continue with your regular medications, Tylenol and Motrin as needed for pain control try the Combivent as needed for shortness of breath, please followup with your primary care provider in 5-7 days if not better, please call return to the emergency department with worsening of symptoms. Sepsis Event Note (ED) - Evaluation Sepsis Screening Result: Possible Sepsis Risk - Focused Exam Vital Signs: Vital Signs Temp Pulse Resp BP Pulse Ox 09/13/20 15:11 102 H 105/78 97 09/13/20 13:21 118 H 32 H 111/81 96 09/13/20 13:05 96.5 F L 56 L 36 H 140/87 95 - My Orders Last 24 Hours: My Active Orders 09/13/20 13:42 RT Post Treatment Assessment [RC] Click to Edit Acetaminophen [TylenoL] 650 mg PO Q4H PRN Albuterol/Ipratropium [Combivent Respimat] 1 gm INH Q4H PRN Isolation [COMM] Stat 09/13/20 13:43 Nurse Communication: Isolation [RC] ASDIRECTED 09/13/20 14:01 LACTIC ACID [CHEM] Stat - Assessment/Plan Last 24 Hours: My Active Orders 09/13/20 13:42 RT Post Treatment Assessment [RC] Click to Edit Acetaminophen [TylenoL] 650 mg PO Q4H PRN Albuterol/Ipratropium [Combivent Respimat] 1 gm INH Q4H PRN Isolation [COMM] Stat 09/13/20 13:43 Nurse Communication: Isolation [RC] ASDIRECTED 09/13/20 14:01 LACTIC ACID [CHEM] Stat Plan: Assessment Acuity = acute Site and laterality = post viral syndrome Etiology = COVID-19 Manifestations = fatigue Location of injury = Home Lab values = WBC elevated 53.9 consistent with leukocytosis this is chronic D- dimer elevated 1785 probably related to inflammatory response creatinine elevated 1.7 consistent chronic renal failure stage G4 ferritin elevated at 499 CRP elevated at 6.48 procalcitonin -0.07 chest x-ray shows no acute pulmonary process Plan He had good relief with Combivent inhaler provided discharged home follow-up primary care in 5 to 7 days if no improvement talk to him about post viral infection This note was dictated using DrFirst voice recognition software please call with any questions on syntax or grammar.
--- NOTE | 2020-09-13 15:07 | CR ---
CHEST: Portable 09/13/2020 at 2:32 PM CLINICAL HISTORY:Respiratory failure COMPARISON:May 2020 FINDINGS: Patient has had previous right thoracotomy for partial pneumonectomy. Heart size and pulmonary vascularity are normal. Patient has had previous sternotomy. There is a permanent cardiac pacer. Lungs are moderately emphysematous. IMPRESSION: Previous partial right pneumonectomy Moderate emphysematous change No acute cardiopulmonary process
[2020-09-13 15:11] VITALS: BP 105/78; PULSE 102
== END 2020-09-13 15:47 | disposition home or self-care (01) ==
LOC: JP.ED 13:01
DX: R53.1 Weakness (principal); R06.02 Shortness of breath; I10 Essential (primary) hypertension; E78.00 Pure hypercholesterolemia, unspecified; J44.9 Chronic obstructive pulmonary disease, unspecified; Z79.82 Long term (current) use of aspirin; Z79.899 Other long term (current) drug therapy
CPT/HCPCS: 36415; 71045; 80048; 80076; 82728; 83605; 83615; 84145; 85025; 85379; 85610; 86140; 99285; A9270

== ENCOUNTER 2021-12-19 20:47 | Emergency (ER) | payer MEDICARE ==
[2021-12-19 21:02] VITALS: BP 102/65; PULSE 96
[2021-12-19 22:12] LABS: CORONAVIRUS COVID-19 NAA NEGATIVE (NEGATIVE)
== END 2021-12-19 22:42 | disposition home or self-care (01) ==
LOC: JP.ED 20:47
DX: R53.1 Weakness (principal); R41.0 Disorientation, unspecified; N30.01 Acute cystitis with hematuria; I12.9 Hypertensive chronic kidney disease with stage 1 through stage 4 chronic kidney disease, or unspecified chronic kidney disease; N18.31 Chronic kidney disease, stage 3a; Z72.0 Tobacco use
CPT/HCPCS: 0241U; 36415; 80053; 81001; 83605; 85025; 86140; 87086; 99283; 99284

== ENCOUNTER 2022-01-11 18:21 | Inpatient (IN) | payer MEDICARE ==
[2022-01-11 19:33] LABS: CORONAVIRUS COVID-19 NAA NEGATIVE (NEGATIVE)
[2022-01-11] MEDS ORDERED: cefTRIAXone 1 GM in Sodium Chloride 0.9% 50 ML IV ONE (20:34)
[2022-01-11] MEDS ORDERED: Albuterol 0.083% 2.5 MG/3 ML Neb Soln NEB PRN (21:57)
[2022-01-11] MEDS ORDERED: Sodium Chloride 0.9% 1,000 ML IV SCH (22:00)
[2022-01-12] MEDS: Rosuvastatin 10 MG Tab PO SCH (08:51)
[2022-01-12] MEDS: Aspirin 81 MG Tab.Chew PO SCH (08:51)
[2022-01-12] MEDS: Silver Sulfadiazine 1% Crm 50 GM Tube TOP SCH ×2 (08:51→21:00)
[2022-01-12] MEDS ORDERED: Silver Sulfadiazine 1% Crm 400 GM Jar TOP SCH (09:00)
[2022-01-12] MEDS ORDERED: Lisinopril 2.5 MG Tab PO SCH (09:00)
[2022-01-12] MEDS: Metoprolol Succinate 25 MG Tab.ER PO SCH (09:53)
[2022-01-12] MEDS: Enoxaparin 30 MG/0.3 ML Syringe SUBCUT SCH (09:54)
[2022-01-12] MEDS ORDERED: Haloperidol Lactate 5 MG/ML SDV IVPUSH PRN (17:17)
[2022-01-12] MEDS: Lactobacillus Rhamnosus GG (Probiotic) Cap PO SCH (20:59)
[2022-01-12] MEDS: cefTRIAXone 1 GM in Sodium Chloride 0.9% 50 ML IV SCH (20:59)
[2022-01-12] MEDS: Melatonin 3 MG Tab PO SCH (21:00)
[2022-01-12] MEDS ORDERED: cefTRIAXone 1 GM Vial IM SCH (22:00)
[2022-01-13] MEDS: Rosuvastatin 10 MG Tab PO SCH (08:07)
[2022-01-13] MEDS: Metoprolol Succinate 25 MG Tab.ER PO SCH (08:07)
[2022-01-13] MEDS: Lactobacillus Rhamnosus GG (Probiotic) Cap PO SCH ×2 (08:08→20:40)
[2022-01-13] MEDS: Aspirin 81 MG Tab.Chew PO SCH (08:08)
[2022-01-13] MEDS: Silver Sulfadiazine 1% Crm 50 GM Tube TOP SCH ×2 (09:12→20:41)
[2022-01-13] MEDS: Enoxaparin 30 MG/0.3 ML Syringe SUBCUT SCH (09:12)
[2022-01-13] MEDS: cefTRIAXone 1 GM in Sodium Chloride 0.9% 50 ML IV SCH (20:23)
[2022-01-13] MEDS ORDERED: Cefdinir 300 MG Cap PO ONE (20:30)
[2022-01-13] MEDS: Melatonin 3 MG Tab PO SCH (20:40)
[2022-01-14] MEDS: Acetaminophen 325 MG Tab PO PRN ×2 (04:32→21:18)
[2022-01-14] MEDS: Silver Sulfadiazine 1% Crm 50 GM Tube TOP SCH ×2 (08:06→21:20)
[2022-01-14] MEDS: Lactobacillus Rhamnosus GG (Probiotic) Cap PO SCH ×2 (08:06→21:19)
[2022-01-14] MEDS: Rosuvastatin 10 MG Tab PO SCH (08:06)
[2022-01-14] MEDS: Aspirin 81 MG Tab.Chew PO SCH (08:06)
[2022-01-14] MEDS: Cefdinir 300 MG Cap PO SCH ×2 (08:06→21:20)
[2022-01-14] MEDS: Metoprolol Succinate 25 MG Tab.ER PO SCH (08:07)
[2022-01-14] MEDS: Enoxaparin 30 MG/0.3 ML Syringe SUBCUT SCH (09:17)
[2022-01-14] MEDS: Melatonin 3 MG Tab PO SCH (21:16)
[2022-01-15] MEDS: Acetaminophen 325 MG Tab PO PRN (01:34)
[2022-01-15] MEDS ORDERED: oxyCODONE 5 MG Tab PO PRN (02:14)
[2022-01-15] MEDS: Metoprolol Succinate 25 MG Tab.ER PO SCH (09:03)
[2022-01-15] MEDS: Lactobacillus Rhamnosus GG (Probiotic) Cap PO SCH (09:03)
[2022-01-15] MEDS: Rosuvastatin 10 MG Tab PO SCH (09:03)
[2022-01-15] MEDS: Cefdinir 300 MG Cap PO SCH (09:03)
[2022-01-15] MEDS: Aspirin 81 MG Tab.Chew PO SCH (09:03)
[2022-01-15] MEDS: Silver Sulfadiazine 1% Crm 50 GM Tube TOP SCH (09:04)
[2022-01-15] MEDS: Enoxaparin 30 MG/0.3 ML Syringe SUBCUT SCH (09:04)
[2022-01-15 10:39] VITALS: BP 115/78; PULSE 80
== END 2022-01-15 15:40 | DRG 690 ==
LOC: JP.ED 18:21 → JP.MS 20:41
PROVIDERS: ADMIT Family Medicine; ATTEND Hospitalist
DX: N30.01 Acute cystitis with hematuria (principal); C91.10 Chronic lymphocytic leukemia of B-cell type not having achieved remission; R53.1 Weakness; R41.0 Disorientation, unspecified; I12.9 Hypertensive chronic kidney disease with stage 1 through stage 4 chronic kidney disease, or unspecified chronic kidney disease; N18.31 Chronic kidney disease, stage 3a; N18.30 Chronic kidney disease, stage 3 unspecified; E78.00 Pure hypercholesterolemia, unspecified; I73.9 Peripheral vascular disease, unspecified; I25.10 Atherosclerotic heart disease of native coronary artery without angina pectoris; Z96.649 Presence of unspecified artificial hip joint; Z96.659 Presence of unspecified artificial knee joint; E78.5 Hyperlipidemia, unspecified; Z98.62 Peripheral vascular angioplasty status; Z89.9 Acquired absence of limb, unspecified; Z20.822 Contact with and (suspected) exposure to COVID-19; J44.9 Chronic obstructive pulmonary disease, unspecified; W19.XXXA Unspecified fall, initial encounter; Z87.440 Personal history of urinary (tract) infections; S91.302A Unspecified open wound, left foot, initial encounter; N40.0 Benign prostatic hyperplasia without lower urinary tract symptoms; D63.1 Anemia in chronic kidney disease; W18.30XA Fall on same level, unspecified, initial encounter; I25.5 Ischemic cardiomyopathy; S91.351A Open bite, right foot, initial encounter; Y92.009 Unspecified place in unspecified non-institutional (private) residence as the place of occurrence of the external cause; Z79.82 Long term (current) use of aspirin; Z79.899 Other long term (current) drug therapy; Z89.431 Acquired absence of right foot; Z95.0 Presence of cardiac pacemaker; Z90.2 Acquired absence of lung [part of]; Z95.1 Presence of aortocoronary bypass graft; Z90.79 Acquired absence of other genital organ(s); Z87.891 Personal history of nicotine dependence; Z91.81 History of falling; Z85.118 Personal history of other malignant neoplasm of bronchus and lung; Z98.42 Cataract extraction status, left eye; Z98.41 Cataract extraction status, right eye; X31.XXXA Exposure to excessive natural cold, initial encounter
CPT/HCPCS: 0241U; 36415; 70450; 71045; 71045-26; 80048; 80053; 81001; 82550; 83605; 85025; 85027; 86140; 87086; 97110-GP; 97162-GP; 97165-GO; 97530-GP; 99232; 99238; 99285; 99285-25; A9270-GY; J0696; J1630; J1650; J7030

== ENCOUNTER 2022-01-20 10:13 | Emergency (ER) | payer MEDICARE ==
[2022-01-20 10:19] VITALS: PULSE 77
[2022-01-20 12:12] VITALS: BP 99/57
== END 2022-01-20 13:35 ==
LOC: JP.ED 10:13
DX: R33.8 Other retention of urine (principal); I12.9 Hypertensive chronic kidney disease with stage 1 through stage 4 chronic kidney disease, or unspecified chronic kidney disease; N18.9 Chronic kidney disease, unspecified; E78.00 Pure hypercholesterolemia, unspecified; J44.9 Chronic obstructive pulmonary disease, unspecified; Z79.899 Other long term (current) drug therapy
CPT/HCPCS: 51702; 51798; 81001; 99283; 99285

== ENCOUNTER 2022-01-21 01:21 | Inpatient (IN) | payer MEDICARE ==
[2022-01-21] MEDS ORDERED: Lidocaine 2% Jelly 10 ML Urojet MUCMEM ONE ×3 (01:25→20:00)
[2022-01-21] MEDS ORDERED: Sodium Chloride 0.9% 10 ML Syringe FLUSH PRN (04:50)
[2022-01-21 05:41] LABS: CORONAVIRUS COVID-19 NAA NEGATIVE (NEGATIVE)
[2022-01-21] MEDS ORDERED: Bisacodyl 10 MG Supp RECTAL PRN (05:47)
[2022-01-21] MEDS ORDERED: Sennosides 8.6 MG Tab PO PRN (05:47)
[2022-01-21] MEDS ORDERED: Acetaminophen/HYDROcodone 325-5 MG Tab PO PRN (05:47)
[2022-01-21] MEDS ORDERED: Acetaminophen 325 MG Tab, 50 Tab Bulk Bottle PO PRN (05:47)
[2022-01-21] MEDS: Silver Sulfadiazine 1% Crm 50 GM Tube TOP SCH ×2 (09:49→20:26)
[2022-01-21] MEDS: Aspirin 81 MG Tab.EC PO SCH (09:49)
[2022-01-21] MEDS: Rosuvastatin 10 MG Tab PO SCH (09:49)
[2022-01-21] MEDS: Metoprolol Succinate 25 MG Tab.ER PO SCH (09:51)
[2022-01-21] MEDS: Lisinopril 2.5 MG Tab PO SCH (09:51)
[2022-01-21] MEDS ORDERED: Tamsulosin 0.4 MG Cap.ER PO ONE (13:45)
[2022-01-21] MEDS: Melatonin 3 MG Tab PO SCH (20:49)
[2022-01-21] MEDS: Acetaminophen 325 MG Tab PO PRN (23:40)
[2022-01-22] MEDS: Haloperidol 5 MG Tab PO PRN ×4 (01:41→15:08)
[2022-01-22] MEDS: Rosuvastatin 10 MG Tab PO SCH (08:35)
[2022-01-22] MEDS: Aspirin 81 MG Tab.EC PO SCH (08:35)
[2022-01-22] MEDS: Tamsulosin 0.4 MG Cap.ER PO SCH (08:35)
[2022-01-22] MEDS ORDERED: Lactated Ringers 500 ML IV SCH (10:00)
[2022-01-22] MEDS: Silver Sulfadiazine 1% Crm 50 GM Tube TOP SCH ×2 (10:13→20:14)
[2022-01-22] MEDS: Divalproex Sodium Delayed-Release 125 MG Cap.Sprink PO SCH ×2 (10:14→17:39)
[2022-01-22] MEDS: Azithromycin 250 MG Tab PO SCH (10:14)
[2022-01-22] MEDS: Acetaminophen 325 MG Tab PO PRN (10:18)
[2022-01-22] MEDS: Metoprolol Succinate 25 MG Tab.ER PO SCH (10:50)
[2022-01-22] MEDS: Lisinopril 2.5 MG Tab PO SCH (10:50)
[2022-01-22] MEDS: Enoxaparin 30 MG/0.3 ML Syringe SUBCUT SCH (14:05)
[2022-01-22] MEDS: Melatonin 3 MG Tab PO SCH (20:14)
[2022-01-23] MEDS: Haloperidol 5 MG Tab PO PRN (01:37)
[2022-01-23] MEDS: Aspirin 81 MG Tab.EC PO SCH (09:17)
[2022-01-23] MEDS: Silver Sulfadiazine 1% Crm 50 GM Tube TOP SCH ×2 (09:17→20:33)
[2022-01-23] MEDS: Divalproex Sodium Delayed-Release 125 MG Cap.Sprink PO SCH ×2 (09:17→18:33)
[2022-01-23] MEDS: Rosuvastatin 10 MG Tab PO SCH (09:17)
[2022-01-23] MEDS: Tamsulosin 0.4 MG Cap.ER PO SCH (09:17)
[2022-01-23] MEDS: Azithromycin 250 MG Tab PO SCH (09:18)
[2022-01-23] MEDS: Enoxaparin 30 MG/0.3 ML Syringe SUBCUT SCH (13:58)
[2022-01-23] MEDS: Melatonin 3 MG Tab PO SCH (20:33)
[2022-01-24 06:22] VITALS: BP 98/58; PULSE 82
[2022-01-24] MEDS: Rosuvastatin 10 MG Tab PO SCH (08:03)
[2022-01-24] MEDS: Silver Sulfadiazine 1% Crm 50 GM Tube TOP SCH (08:03)
[2022-01-24] MEDS: Aspirin 81 MG Tab.EC PO SCH (08:03)
[2022-01-24] MEDS: Azithromycin 250 MG Tab PO SCH (08:03)
[2022-01-24] MEDS: Tamsulosin 0.4 MG Cap.ER PO SCH (08:04)
[2022-01-24] MEDS: Divalproex Sodium Delayed-Release 125 MG Cap.Sprink PO SCH (08:37)
== END 2022-01-24 09:20 | DRG 726 ==
LOC: JP.ED 01:21 → JP.MS 05:56
PROVIDERS: ADMIT Family Medicine; ATTEND Internal Medicine
DX: R53.1 Weakness (principal); R41.0 Disorientation, unspecified; N40.1 Benign prostatic hyperplasia with lower urinary tract symptoms; E78.00 Pure hypercholesterolemia, unspecified; C91.10 Chronic lymphocytic leukemia of B-cell type not having achieved remission; I44.2 Atrioventricular block, complete; R33.8 Other retention of urine; F03.90 Unspecified dementia, unspecified severity, without behavioral disturbance, psychotic disturbance, mood disturbance, and anxiety; N18.9 Chronic kidney disease, unspecified; N40.0 Benign prostatic hyperplasia without lower urinary tract symptoms; G62.9 Polyneuropathy, unspecified; Z85.118 Personal history of other malignant neoplasm of bronchus and lung; I25.10 Atherosclerotic heart disease of native coronary artery without angina pectoris; J44.9 Chronic obstructive pulmonary disease, unspecified; Z87.891 Personal history of nicotine dependence; I73.9 Peripheral vascular disease, unspecified; R45.1 Restlessness and agitation; I12.9 Hypertensive chronic kidney disease with stage 1 through stage 4 chronic kidney disease, or unspecified chronic kidney disease; R64 Cachexia; R06.02 Shortness of breath; N18.31 Chronic kidney disease, stage 3a; Z66 Do not resuscitate; Z20.822 Contact with and (suspected) exposure to COVID-19; E78.5 Hyperlipidemia, unspecified; Z95.0 Presence of cardiac pacemaker; Z79.82 Long term (current) use of aspirin; Z79.899 Other long term (current) drug therapy; Z95.1 Presence of aortocoronary bypass graft; T33.822D Superficial frostbite of left foot, subsequent encounter; X31.XXXD Exposure to excessive natural cold, subsequent encounter
CPT/HCPCS: 0241U; 36415; 51702; 71045; 71045-26; 80048; 80053; 82140; 83605; 83690; 83880; 84145; 84443; 84484; 85025; 85027; 86140; 93005; 97110-GP; 97162-GP; 97530-GP; 99284; 99285-25; A9270-GY; J1650; J7120; U0002